=== PATIENT | female | born 1990 | race African-American/Black ===

== ENCOUNTER 2016-09-09 15:08 | Inpatient (IN) | payer MEDICARE, MEDICAID ==
[~2016-09-09] VITALS: Ht 175.3 cm; Wt 115.8 kg
[~2016-09-09 15:08] MED LIST: PALI234D IM; RISP2 PO; SERT50TA12 PO
[2016-09-09 16:14] VITALS: BP 139/86
[2016-09-09 16:30] VITALS: BP 137/96
[2016-09-09] MEDS ORDERED: -PHARMACY VACCINE NOTE- MISC ONE ×6 (19:30→20:45)
[2016-09-09] MEDS: RisperiDONE 2 MG TABLET PO SCH (20:58)
[2016-09-10 06:18] VITALS: BP 100/68
[2016-09-10 08:16] VITALS: BP 127/74
[2016-09-10 08:50] LABS: BASOPHILS % (AUTO) 0.4 % (0.0-2.0); EOSINOPHILS % (AUTO) 1.3 % (1.0-6.0); HEMATOCRIT 38.4 % (36-46); HEMOGLOBIN 12.8 g/dL (12.0-16.0); LYMPHOCYTES # (AUTO) 2.3 K/uL (1.0-4.8); LYMPHOCYTES % (AUTO) 36.2 % (22.0-44.0); MEAN CORPUSCULAR HEMOGLOBIN 28.1 pg (26.0-34.0); MEAN CORPUSCULAR HGB CONC 33.2 G/dL (31.0-37.0); MEAN CORPUSCULAR VOLUME 84 fL (80-100); MONOCYTES # (AUTO) 0.7 K/uL (0.1-1.0); MONOCYTES % (AUTO) 10.2 % (2.0-9.0); NEUTROPHILS # (AUTO) 3.3 K/uL (1.8-7.7); NEUTROPHILS % (AUTO) 51.9 % (40.0-70.0); PLATELET COUNT (AUTO) 278 K/uL (150-450); RED BLOOD CELL COUNT(AUTO) 4.55 MIL/uL (4.00-5.20); RED CELL DISTRIBUTION WIDTH 14.2 % (11.5-14.5); WHITE BLOOD COUNT (AUTO) 6.4 K/uL (4.5-11.0)
[2016-09-10] MEDS: RisperiDONE 2 MG TABLET PO SCH ×2 (09:00→21:14)
[2016-09-10 09:05] LABS: ALANINE AMINOTRANSFERASE 17 U/L (12-78); ALBUMIN 3.5 g/dL (3.4-5.0); ANION GAP 15 mmol/L (8-16); ASPARTATE AMINOTRANSFERASE 11 U/L (15-37); BILIRUBIN,TOTAL 0.6 mg/dL (0.1-1.0); CALCIUM, TOTAL 9.6 mg/dL (8.8-10.5); CARBON DIOXIDE 24 mmol/L (22-29); CHLORIDE 104 mmol/L (98-107); CREATININE 0.59 mg/dL (0.60-1.30); GLOMERULAR FILTR. RATE CALC > 60 mL/min (>60); POTASSIUM 3.7 mmol/L (3.5-5.1); SODIUM SERUM 143 mmol/L (136-145); TOTAL PROTEIN, SERUM 7.3 g/dL (6.4-8.2); UREA NITROGEN, BLOOD 7 mg/dL (7-18)
[2016-09-10] MEDS ORDERED: MAGNESIUM HYDROXIDE SUSPENSION 30 ML UDCUP PO PRN (09:15)
[2016-09-10] MEDS ORDERED: BACITRACIN 28.4 GM OINTMENT TP PRN (09:15)
[2016-09-10] MEDS ORDERED: PETROLATUM,WHITE 71 GM JELLY TP PRN (09:15)
[2016-09-10] MEDS ORDERED: CloNIDine HCL 0.1 MG TABLET PO PRN (09:15)
[2016-09-10] MEDS: LORazepam 2 MG TABLET PO PRN (09:29)
[2016-09-10] MEDS: SERTRALINE HCL 50 MG TABLET PO SCH (09:29)
[2016-09-10 16:18] VITALS: BP 119/63
[2016-09-11 07:05] VITALS: BP 118/68
[2016-09-11 08:33] LABS: APPEARANCE,URINE TURBID (CLEAR); GLUCOSE, URINE (UA) NEGATIVE (NEGATIVE); KETONES,URINE TRACE mg/dL (NEGATIVE); OCCULT BLOOD,URINE NEGATIVE (NEGATIVE); PROTEIN,URINE TRACE (NEGATIVE)
[2016-09-11] MEDS: SERTRALINE HCL 50 MG TABLET PO SCH (08:48)
[2016-09-11] MEDS: RisperiDONE 2 MG TABLET PO SCH ×2 (08:48→09:00)
[2016-09-11 09:14] LABS: ADD UA MICROSCOPIC YES; LEUKOCYTE ESTERASE ,URINE TRACE (NEGATIVE)
[2016-09-11 09:15] LABS: AMORPHOUS SEDIMENT,UR Many /LPF (None Seen); RBC,URINE None Seen /HPF (0-2); WBC,URINE 0-2 /HPF (0-5)
[2016-09-11] MEDS: LORazepam 2 MG TABLET PO PRN (09:20)
[2016-09-11] MEDS: CEPHALEXIN MONOHYDRATE 500 MG CAPSULE PO SCH ×2 (10:39→17:05)
[2016-09-11] MEDS: PHENAZOPYRIDINE HCL 100 MG TABLET PO SCH ×3 (10:39→17:04)
[2016-09-11 10:49] VITALS: BP 122/71
[2016-09-11 16:46] VITALS: BP 118/71
[2016-09-12 02:38] VITALS: BP 125/83
[2016-09-12 08:30] VITALS: BP 134/77
[2016-09-12] MEDS: SERTRALINE HCL 50 MG TABLET PO SCH (08:47)
[2016-09-12] MEDS: CEPHALEXIN MONOHYDRATE 500 MG CAPSULE PO SCH ×2 (08:47→16:41)
[2016-09-12] MEDS: PHENAZOPYRIDINE HCL 100 MG TABLET PO SCH ×3 (08:47→16:41)
[2016-09-12] MEDS: LORazepam 2 MG TABLET PO PRN (08:52)
[2016-09-12] MEDS: ONDANSETRON HCL 4 MG TABLET PO PRN (14:13)
[2016-09-12 16:19] VITALS: BP 127/68
[2016-09-13 00:15] VITALS: BP 112/60
[2016-09-13] MEDS: ZOLPIDEM TARTRATE 10 MG TABLET PO PRN (00:28)
[2016-09-13] MEDS: SERTRALINE HCL 50 MG TABLET PO SCH (08:43)
[2016-09-13] MEDS: CEPHALEXIN MONOHYDRATE 500 MG CAPSULE PO SCH ×2 (08:44→16:52)
[2016-09-13] MEDS: PHENAZOPYRIDINE HCL 100 MG TABLET PO SCH ×3 (08:44→16:52)
[2016-09-13 08:54] VITALS: BP 121/93
[2016-09-13 10:12] VITALS: BP 118/85
[2016-09-13 16:13] VITALS: BP 128/73
[2016-09-14 06:04] VITALS: BP 103/63
[2016-09-14 08:44] VITALS: BP 162/87
[2016-09-14] MEDS: PHENAZOPYRIDINE HCL 100 MG TABLET PO SCH (09:12)
[2016-09-14] MEDS: SERTRALINE HCL 50 MG TABLET PO SCH (09:12)
[2016-09-14] MEDS: CEPHALEXIN MONOHYDRATE 500 MG CAPSULE PO SCH ×2 (09:12→17:26)
[2016-09-14] MEDS: LORazepam 2 MG TABLET PO PRN (09:57)
[2016-09-14 16:19] VITALS: BP 123/82
[2016-09-15 08:42] VITALS: BP 159/99
[2016-09-15] MEDS: SERTRALINE HCL 50 MG TABLET PO SCH (08:58)
[2016-09-15] MEDS: CEPHALEXIN MONOHYDRATE 500 MG CAPSULE PO SCH ×2 (08:58→16:53)
[2016-09-15] MEDS: LORazepam 2 MG TABLET PO PRN (10:03)
[2016-09-15 12:40] VITALS: BP 122/74
[2016-09-15 16:05] VITALS: BP 104/64
[2016-09-16 00:15] VITALS: BP 106/76
[2016-09-16] MEDS: SERTRALINE HCL 50 MG TABLET PO SCH (08:54)
[2016-09-16] MEDS: CEPHALEXIN MONOHYDRATE 500 MG CAPSULE PO SCH (08:54)
[2016-09-16 09:12] VITALS: BP 121/66
[2016-09-16] MEDS: LORazepam 2 MG TABLET PO PRN (09:14)
[2016-09-16 16:14] VITALS: BP 109/75
[2016-09-17 01:44] VITALS: BP 106/67
[2016-09-17 08:30] VITALS: BP 125/75
[2016-09-17] MEDS: SERTRALINE HCL 50 MG TABLET PO SCH (09:36)
[2016-09-17 16:11] VITALS: BP 126/90
[2016-09-17 20:33] VITALS: BP 138/86
[2016-09-17] MEDS: IBUPROFEN 600 MG TABLET PO PRN (20:33)
[2016-09-18 06:27] VITALS: BP 106/67
[2016-09-18] MEDS: SERTRALINE HCL 50 MG TABLET PO SCH (08:35)
[2016-09-18] MEDS: LORazepam 2 MG TABLET PO PRN (08:49)
[2016-09-18 08:57] VITALS: BP 128/83
[2016-09-18 11:19] VITALS: BP 134/80
[2016-09-18] MEDS: IBUPROFEN 600 MG TABLET PO PRN (11:19)
[2016-09-18] MEDS: QUEtiapine FUMARATE 100 MG TABLET PO PRN (11:19)
[2016-09-18 16:09] VITALS: BP 120/60
[2016-09-19 02:14] VITALS: BP 136/93
[2016-09-19] MEDS: IBUPROFEN 600 MG TABLET PO PRN (02:26)
[2016-09-19 03:05] VITALS: BP 128/87
[2016-09-19] MEDS: LORazepam 2 MG TABLET PO PRN (03:43)
[2016-09-19 08:25] VITALS: BP 124/64
[2016-09-19] MEDS: SERTRALINE HCL 50 MG TABLET PO SCH (08:30)
[2016-09-19] MEDS: ONDANSETRON HCL 4 MG TABLET PO PRN (11:37)
[2016-09-19] MEDS: MAG HYDROX/AL HYDROX/SIMETH ES 30 ML SUSPENSION UDCUP PO PRN (17:51)
[2016-09-20 00:15] VITALS: BP 105/66
[2016-09-20] MEDS: SERTRALINE HCL 50 MG TABLET PO SCH (08:29)
[2016-09-20 08:56] VITALS: BP 126/86
[2016-09-20 16:16] VITALS: BP 121/68
[2016-09-21 00:20] VITALS: BP 120/77
[2016-09-21 08:21] VITALS: BP 125/88
[2016-09-21] MEDS: SERTRALINE HCL 50 MG TABLET PO SCH (09:14)
[2016-09-21 09:35] LABS: GLUCOSE, URINE (UA) NEGATIVE (NEGATIVE); KETONES,URINE NEGATIVE (NEGATIVE); LEUKOCYTE ESTERASE ,URINE NEGATIVE (NEGATIVE); OCCULT BLOOD,URINE NEGATIVE (NEGATIVE); PH,URINE 5.5 (5.0-8.0); PROTEIN,URINE NEGATIVE (NEGATIVE)
[2016-09-21 09:39] LABS: APPEARANCE,URINE CLEAR (CLEAR)
[2016-09-21 09:40] LABS: ADD UA MICROSCOPIC NO
[2016-09-21 16:10] VITALS: BP 138/86
[2016-09-22 00:10] VITALS: BP 115/60
[2016-09-22 08:08] VITALS: BP 126/82
[2016-09-22] MEDS: SERTRALINE HCL 50 MG TABLET PO SCH (08:46)
[2016-09-22 16:13] VITALS: BP 108/62
[2016-09-23 00:25] VITALS: BP 108/61
[2016-09-23 08:11] VITALS: BP 154/81
[2016-09-23] MEDS: LORazepam 2 MG TABLET PO PRN (08:42)
[2016-09-23] MEDS: SERTRALINE HCL 50 MG TABLET PO SCH (08:42)
[2016-09-23 16:12] VITALS: BP 126/86
[2016-09-24 04:10] VITALS: BP 101/62
[2016-09-24 08:34] VITALS: BP 104/64
[2016-09-24] MEDS: SERTRALINE HCL 50 MG TABLET PO SCH (09:07)
[2016-09-24] MEDS: LORazepam 2 MG TABLET PO PRN (13:14)
[2016-09-24] MEDS: BENZOCAINE/MENTHOL LOZENGE MM PRN (13:14)
[2016-09-24 16:12] VITALS: BP 126/84
[2016-09-25 00:57] VITALS: BP 115/65
[2016-09-25 05:08] VITALS: BP 132/82
[2016-09-25] MEDS: IBUPROFEN 600 MG TABLET PO PRN (05:11)
[2016-09-25] MEDS: LORazepam 2 MG TABLET PO PRN ×2 (05:11→18:00)
[2016-09-25 08:10] VITALS: BP 119/78
[2016-09-25] MEDS: ONDANSETRON HCL 4 MG TABLET PO PRN (08:21)
[2016-09-25] MEDS: SERTRALINE HCL 50 MG TABLET PO SCH (08:21)
[2016-09-25] MEDS: BENZOCAINE/MENTHOL LOZENGE MM PRN (11:23)
[2016-09-25] MEDS ORDERED: GuaiFENesin/D-METHORPHAN/PHENYLEPH 5 ML LIQUID ORAL.SYG PO PRN (11:30)
[2016-09-25 16:11] VITALS: BP 125/84
[2016-09-26 06:46] VITALS: BP 124/80
[2016-09-26 08:44] VITALS: BP 125/82
[2016-09-26] MEDS: SERTRALINE HCL 50 MG TABLET PO SCH (08:56)
[2016-09-26] MEDS: LORazepam 2 MG TABLET PO PRN (08:56)
[2016-09-26 16:10] VITALS: BP 114/70
[2016-09-27 06:09] VITALS: BP 126/73
[2016-09-27 06:10] VITALS: BP 120/76
[2016-09-27] MEDS: SERTRALINE HCL 50 MG TABLET PO SCH (08:10)
[2016-09-27] MEDS: LORazepam 2 MG TABLET PO PRN (08:47)
[2016-09-27 09:19] VITALS: BP 101/67
[2016-09-27 16:00] VITALS: BP 111/65
[2016-09-28 06:37] VITALS: BP 122/82
[2016-09-28 08:26] VITALS: BP 127/73
[2016-09-28] MEDS: SERTRALINE HCL 50 MG TABLET PO SCH (09:31)
[2016-09-28] MEDS: PALIPERIDONE PALMITATE 234 MG/1.5 ML SYRINGE IM SCH (10:17)
[2016-09-28] MEDS ORDERED: TUBERCULIN, PURIFIED PROTEIN DERIVATIVE 5 TU/0.1 ML SYG ID ONE (11:45)
[2016-09-28 16:24] VITALS: BP 126/80
[2016-09-29 06:48] VITALS: BP 125/78
[2016-09-29 08:10] VITALS: BP 139/82
[2016-09-29] MEDS: SERTRALINE HCL 50 MG TABLET PO SCH (09:01)
[2016-09-29] MEDS: LORazepam 2 MG TABLET PO PRN (09:45)
[2016-09-29 14:14] VITALS: BP 137/77
[2016-09-29 16:19] VITALS: BP 138/82
[2016-09-30 06:10] VITALS: BP 119/65
[2016-09-30 08:21] VITALS: BP 118/81
[2016-09-30] MEDS: SERTRALINE HCL 50 MG TABLET PO SCH (08:46)
[2016-09-30] MEDS: LORazepam 2 MG TABLET PO PRN (09:28)
[2016-09-30 09:30] VITALS: BP 116/71
[2016-09-30 16:10] VITALS: BP 123/75
[2016-10-01 00:40] VITALS: BP 105/67
[2016-10-01 08:31] VITALS: BP 128/71
[2016-10-01] MEDS: SERTRALINE HCL 50 MG TABLET PO SCH (08:52)
[2016-10-01] MEDS: LORazepam 2 MG TABLET PO PRN (14:50)
[2016-10-01 16:15] VITALS: BP 132/80
[2016-10-02 02:00] VITALS: BP 107/60
[2016-10-02] MEDS: SERTRALINE HCL 50 MG TABLET PO SCH (08:39)
[2016-10-02 08:49] VITALS: BP 134/82
[2016-10-02 13:37] VITALS: BP 130/80
[2016-10-02] MEDS: LOPERAMIDE HCL 2 MG CAPSULE PO PRN (13:37)
[2016-10-02] MEDS: IBUPROFEN 600 MG TABLET PO PRN (13:37)
[2016-10-02 18:27] VITALS: BP 115/64
[2016-10-02] MEDS: ZOLPIDEM TARTRATE 10 MG TABLET PO PRN (20:58)
[2016-10-03 04:29] VITALS: BP 118/65
[2016-10-03] MEDS: SERTRALINE HCL 50 MG TABLET PO SCH (08:10)
[2016-10-03 08:46] VITALS: BP 111/88
[2016-10-03 16:12] VITALS: BP 128/86
[2016-10-04 00:34] VITALS: BP 122/65
[2016-10-04 08:33] VITALS: BP 135/71
[2016-10-04] MEDS: SERTRALINE HCL 50 MG TABLET PO SCH (09:44)
[2016-10-04 16:17] VITALS: BP 129/78
[2016-10-05 00:44] VITALS: BP 115/70
[2016-10-05 08:10] VITALS: BP 129/73
[2016-10-05] MEDS: SERTRALINE HCL 50 MG TABLET PO SCH (08:38)
[2016-10-05 16:00] VITALS: BP 134/72
[2016-10-06 01:06] VITALS: BP 122/73
[2016-10-06 08:38] VITALS: BP 129/71
[2016-10-06] MEDS: SERTRALINE HCL 50 MG TABLET PO SCH (08:54)
[2016-10-06] MEDS: LORazepam 2 MG TABLET PO PRN (12:47)
[2016-10-06 16:10] VITALS: BP 121/83
[2016-10-07 00:40] VITALS: BP 107/66
[2016-10-07 07:30] VITALS: BP 116/68
[2016-10-07 08:00] VITALS: BP 116/68
[2016-10-07] MEDS: SERTRALINE HCL 50 MG TABLET PO SCH (09:06)
[2016-10-07 16:06] VITALS: BP 133/84
[2016-10-08 05:47] VITALS: BP 126/75
[2016-10-08 08:50] VITALS: BP 134/83
[2016-10-08] MEDS: SERTRALINE HCL 50 MG TABLET PO SCH (09:27)
[2016-10-08 16:09] VITALS: BP 131/79
[2016-10-09 02:26] VITALS: BP 124/68
[2016-10-09 08:23] VITALS: BP 136/98
[2016-10-09] MEDS: SERTRALINE HCL 50 MG TABLET PO SCH (09:01)
[2016-10-09 16:30] VITALS: BP 132/91
[2016-10-10 00:10] VITALS: BP 111/82
[2016-10-10 08:10] VITALS: BP 137/78
[2016-10-10] MEDS: SERTRALINE HCL 50 MG TABLET PO SCH (08:30)
[2016-10-10 16:07] VITALS: BP 115/69
[2016-10-11 00:01] VITALS: BP 103/63
[2016-10-11 08:10] VITALS: BP 149/95
[2016-10-11] MEDS: SERTRALINE HCL 50 MG TABLET PO SCH (08:55)
[2016-10-11 12:55] VITALS: BP 140/88
[2016-10-11 16:19] VITALS: BP 135/78
[2016-10-12 00:44] VITALS: BP 117/76
[2016-10-12] MEDS: SERTRALINE HCL 50 MG TABLET PO SCH (08:24)
[2016-10-12 08:42] VITALS: BP 129/70
[2016-10-12 16:03] VITALS: BP 139/82
[2016-10-13 00:17] VITALS: BP 119/68
[2016-10-13 08:18] VITALS: BP 104/65
[2016-10-13] MEDS: SERTRALINE HCL 50 MG TABLET PO SCH (09:36)
[2016-10-13 16:07] VITALS: BP 132/75
[2016-10-14 02:56] VITALS: BP 112/71
[2016-10-14 08:07] VITALS: BP 122/94
[2016-10-14] MEDS: SERTRALINE HCL 50 MG TABLET PO SCH (08:20)
[2016-10-14] MEDS: LORazepam 2 MG TABLET PO PRN (08:20)
[2016-10-14 16:17] VITALS: BP 114/69
[2016-10-15 05:05] VITALS: BP 100/64
[2016-10-15 08:12] VITALS: BP 157/89
[2016-10-15] MEDS: SERTRALINE HCL 50 MG TABLET PO SCH (08:48)
[2016-10-15] MEDS: LORazepam 2 MG TABLET PO PRN (09:21)
[2016-10-15 10:25] VITALS: BP 127/77
[2016-10-15 16:21] VITALS: BP 113/72
[2016-10-15 19:15] VITALS: BP 119/79
[2016-10-15] MEDS: ACETAMINOPHEN 325 MG TABLET PO PRN (19:23)
[2016-10-16 05:59] VITALS: BP 104/60
[2016-10-16 08:34] VITALS: BP 124/91
[2016-10-16] MEDS: SERTRALINE HCL 50 MG TABLET PO SCH (08:46)
[2016-10-16] MEDS: ONDANSETRON HCL 4 MG TABLET PO PRN (13:06)
[2016-10-16 16:27] VITALS: BP 129/84
[2016-10-17 00:24] VITALS: BP 107/69
[2016-10-17 08:00] VITALS: BP 152/95
[2016-10-17] MEDS: SERTRALINE HCL 50 MG TABLET PO SCH (08:43)
[2016-10-17] MEDS: LORazepam 2 MG TABLET PO PRN (08:46)
[2016-10-17 10:02] VITALS: BP 138/73
[2016-10-17 16:12] VITALS: BP 112/67
[2016-10-18 03:25] VITALS: BP 127/81
[2016-10-18] MEDS: SERTRALINE HCL 50 MG TABLET PO SCH (08:16)
[2016-10-18] MEDS: ONDANSETRON HCL 4 MG TABLET PO PRN (08:20)
[2016-10-18 08:44] VITALS: BP 133/68
[2016-10-18 16:15] VITALS: BP 132/85
[2016-10-19 00:22] VITALS: BP 112/61
[2016-10-19 08:32] VITALS: BP 127/72
[2016-10-19] MEDS: SERTRALINE HCL 50 MG TABLET PO SCH (09:18)
[2016-10-19 16:14] VITALS: BP 119/74
[2016-10-20 00:28] VITALS: BP 126/65
[2016-10-20 08:19] VITALS: BP 132/83
[2016-10-20] MEDS: SERTRALINE HCL 50 MG TABLET PO SCH (08:21)
[2016-10-20] MEDS ORDERED: TUBERCULIN, PURIFIED PROTEIN DERIVATIVE 5 TU/0.1 ML SYG ID ONE (15:15)
[2016-10-20 16:07] VITALS: BP 137/85
[2016-10-21 00:01] VITALS: BP 129/82
[2016-10-21] MEDS: ZOLPIDEM TARTRATE 10 MG TABLET PO PRN (00:09)
[2016-10-21] MEDS: SERTRALINE HCL 50 MG TABLET PO SCH (08:38)
[2016-10-21 08:55] VITALS: BP 128/80
[2016-10-21 16:05] VITALS: BP 117/71
[2016-10-22 01:30] VITALS: BP 115/70
[2016-10-22 08:25] VITALS: BP 118/68
[2016-10-22] MEDS: SERTRALINE HCL 50 MG TABLET PO SCH ×2 (09:00→09:22)
[2016-10-23 00:01] VITALS: BP 113/68
[2016-10-23] MEDS: SERTRALINE HCL 50 MG TABLET PO SCH (08:46)
[2016-10-23 09:25] VITALS: BP 121/74
[2016-10-23 16:10] VITALS: BP 138/83
[2016-10-24 07:13] VITALS: BP 135/77
[2016-10-24 09:21] VITALS: BP 148/78
[2016-10-24] MEDS: SERTRALINE HCL 50 MG TABLET PO SCH (09:58)
[2016-10-24] MEDS: LORazepam 2 MG TABLET PO PRN (10:25)
[2016-10-24 16:11] VITALS: BP 117/71
[2016-10-25 00:37] VITALS: BP 116/74
[2016-10-25 08:27] VITALS: BP 138/83
[2016-10-25] MEDS: SERTRALINE HCL 50 MG TABLET PO SCH (08:32)
[2016-10-25] MEDS: ONDANSETRON HCL 4 MG TABLET PO PRN (08:35)
[2016-10-25 16:43] VITALS: BP 134/67
[2016-10-26 02:03] VITALS: BP 116/74
[2016-10-26] MEDS: LORazepam 2 MG TABLET PO PRN ×2 (04:42→08:59)
[2016-10-26 08:40] VITALS: BP 133/82
[2016-10-26] MEDS: SERTRALINE HCL 50 MG TABLET PO SCH (08:47)
[2016-10-26 14:30] VITALS: BP 118/71
[2016-10-26] MEDS: PALIPERIDONE PALMITATE 234 MG/1.5 ML SYRINGE IM SCH (14:38)
[2016-10-26 16:21] VITALS: BP 122/78
[2016-10-27 07:19] VITALS: BP 120/76
[2016-10-27 08:57] VITALS: BP 128/80
[2016-10-27] MEDS: SERTRALINE HCL 50 MG TABLET PO SCH (10:03)
[2016-10-27] MEDS: LORazepam 2 MG TABLET PO PRN (11:17)
[2016-10-27] MEDS: QUEtiapine FUMARATE 100 MG TABLET PO PRN (11:17)
[2016-10-27 16:00] VITALS: BP 117/73
[2016-10-28 07:34] VITALS: BP 135/76
[2016-10-28] MEDS: SERTRALINE HCL 50 MG TABLET PO SCH (08:54)
[2016-10-28 16:08] VITALS: BP 119/77
[2016-10-29 01:29] VITALS: BP 124/79
[2016-10-29 08:50] VITALS: BP 107/70
[2016-10-29] MEDS: SERTRALINE HCL 50 MG TABLET PO SCH (09:18)
[2016-10-29 16:10] VITALS: BP 118/75
[2016-10-30 00:51] VITALS: BP 101/63
[2016-10-30] MEDS: SERTRALINE HCL 50 MG TABLET PO SCH (09:25)
[2016-10-30 16:00] VITALS: BP 129/77
[2016-10-31 00:53] VITALS: BP 115/74
[2016-10-31] MEDS: SERTRALINE HCL 50 MG TABLET PO SCH (08:14)
[2016-10-31 08:38] VITALS: BP 129/85
[2016-10-31] MEDS: LORazepam 2 MG TABLET PO PRN (14:36)
[2016-10-31 16:00] VITALS: BP 130/80
[2016-11-01 05:28] VITALS: BP 127/71
[2016-11-01 08:15] VITALS: BP 128/71
[2016-11-01] MEDS: SERTRALINE HCL 50 MG TABLET PO SCH (09:34)
[2016-11-01 16:27] VITALS: BP 119/72
[2016-11-02 00:16] VITALS: BP 106/61
[2016-11-02 08:00] VITALS: BP 124/68
[2016-11-02] MEDS: SERTRALINE HCL 50 MG TABLET PO SCH (08:41)
[2016-11-02] MEDS: IBUPROFEN 600 MG TABLET PO PRN (10:58)
[2016-11-02 16:16] VITALS: BP 135/90
[2016-11-03 00:12] VITALS: BP 134/70
[2016-11-03 08:36] VITALS: BP 129/83
[2016-11-03] MEDS: SERTRALINE HCL 50 MG TABLET PO SCH (10:14)
[2016-11-03] MEDS: ONDANSETRON HCL 4 MG TABLET PO PRN (10:14)
[2016-11-03 16:18] VITALS: BP 136/86
[2016-11-04 06:07] VITALS: BP 111/67
[2016-11-04] MEDS: SERTRALINE HCL 50 MG TABLET PO SCH (09:31)
[2016-11-04 16:19] VITALS: BP 121/66
[2016-11-04] MEDS: IBUPROFEN 600 MG TABLET PO PRN (23:02)
[2016-11-05 06:22] VITALS: BP 122/75
[2016-11-05 08:36] VITALS: BP 136/78
[2016-11-05] MEDS: SERTRALINE HCL 50 MG TABLET PO SCH (09:17)
[2016-11-05 16:15] VITALS: BP 121/70
[2016-11-06 07:22] VITALS: BP 118/75
[2016-11-06] MEDS: SERTRALINE HCL 50 MG TABLET PO SCH (08:41)
[2016-11-06 09:06] VITALS: BP 118/61
[2016-11-06] MEDS: LORazepam 2 MG TABLET PO PRN (10:01)
[2016-11-06] MEDS: IBUPROFEN 600 MG TABLET PO PRN (10:02)
[2016-11-06 16:00] VITALS: BP 128/89
[2016-11-07 07:03] VITALS: BP 132/81
[2016-11-07 08:00] VITALS: BP 137/64
[2016-11-07] MEDS: SERTRALINE HCL 50 MG TABLET PO SCH (08:21)
[2016-11-07] MEDS: LORazepam 2 MG TABLET PO PRN (08:22)
[2016-11-07] MEDS ORDERED: TraMADol HCL 50 MG TABLET PO PRN (08:30)
[2016-11-07] MEDS: MULTIVITAMINS WITH MINERALS, THERAPEUTIC TABLET PO SCH (09:11)
[2016-11-07] MEDS: FLUTICASONE/VILANTEROL 200-25 MCG/INH INHALER [14] IH SCH (09:12)
[2016-11-07 16:36] VITALS: BP 117/77
[2016-11-08 00:46] VITALS: BP 108/65
[2016-11-08] MEDS: SERTRALINE HCL 50 MG TABLET PO SCH (08:07)
[2016-11-08] MEDS: FLUTICASONE/VILANTEROL 200-25 MCG/INH INHALER [14] IH SCH (08:07)
[2016-11-08] MEDS: MULTIVITAMINS WITH MINERALS, THERAPEUTIC TABLET PO SCH (08:07)
[2016-11-08 08:14] VITALS: BP 129/83
[2016-11-08 16:34] VITALS: BP 116/81
[2016-11-09 02:19] VITALS: BP 107/68
[2016-11-09] MEDS: MULTIVITAMINS WITH MINERALS, THERAPEUTIC TABLET PO SCH (08:03)
[2016-11-09] MEDS: FLUTICASONE/VILANTEROL 200-25 MCG/INH INHALER [14] IH SCH (08:03)
[2016-11-09] MEDS: SERTRALINE HCL 50 MG TABLET PO SCH (08:03)
[2016-11-09 08:34] VITALS: BP 124/77
[2016-11-09 16:08] VITALS: BP 114/76
[2016-11-10 06:47] VITALS: BP 104/70
[2016-11-10 08:05] VITALS: BP 111/68
[2016-11-10] MEDS: MULTIVITAMINS WITH MINERALS, THERAPEUTIC TABLET PO SCH (10:37)
[2016-11-10] MEDS: SERTRALINE HCL 50 MG TABLET PO SCH (10:37)
[2016-11-10] MEDS: FLUTICASONE/VILANTEROL 200-25 MCG/INH INHALER [14] IH SCH (10:37)
[2016-11-10 16:05] VITALS: BP 127/75
[2016-11-11 00:07] VITALS: BP 138/85
[2016-11-11] MEDS: LORazepam 2 MG TABLET PO PRN (08:38)
[2016-11-11] MEDS: SERTRALINE HCL 50 MG TABLET PO SCH (08:38)
[2016-11-11] MEDS: FLUTICASONE/VILANTEROL 200-25 MCG/INH INHALER [14] IH SCH (08:38)
[2016-11-11] MEDS: MULTIVITAMINS WITH MINERALS, THERAPEUTIC TABLET PO SCH (08:38)
[2016-11-11 09:15] VITALS: BP 129/74
[2016-11-11 16:10] VITALS: BP 126/79
[2016-11-12 01:00] VITALS: BP 124/73
[2016-11-12 08:28] VITALS: BP 133/88
[2016-11-12] MEDS: SERTRALINE HCL 50 MG TABLET PO SCH (08:39)
[2016-11-12] MEDS: MULTIVITAMINS WITH MINERALS, THERAPEUTIC TABLET PO SCH (08:39)
[2016-11-12] MEDS: FLUTICASONE/VILANTEROL 200-25 MCG/INH INHALER [14] IH SCH (08:39)
[2016-11-12] MEDS: LORazepam 2 MG TABLET PO PRN (09:02)
[2016-11-12 16:11] VITALS: BP 126/72
[2016-11-13 00:19] VITALS: BP 119/71
[2016-11-13 08:57] VITALS: BP 136/88
[2016-11-13] MEDS: SERTRALINE HCL 50 MG TABLET PO SCH (09:02)
[2016-11-13] MEDS: MULTIVITAMINS WITH MINERALS, THERAPEUTIC TABLET PO SCH (09:02)
[2016-11-13] MEDS: FLUTICASONE/VILANTEROL 200-25 MCG/INH INHALER [14] IH SCH (09:02)
[2016-11-13 16:11] VITALS: BP 127/92
[2016-11-14 04:56] VITALS: BP 124/72
[2016-11-14 08:07] VITALS: BP 105/59
[2016-11-14] MEDS: MULTIVITAMINS WITH MINERALS, THERAPEUTIC TABLET PO SCH (08:50)
[2016-11-14] MEDS: SERTRALINE HCL 50 MG TABLET PO SCH (08:50)
[2016-11-14] MEDS: FLUTICASONE/VILANTEROL 200-25 MCG/INH INHALER [14] IH SCH (08:51)
[2016-11-14] MEDS: LORazepam 2 MG TABLET PO PRN (08:55)
[2016-11-14 16:00] VITALS: BP 130/74
[2016-11-15 04:22] VITALS: BP_SYST 126
[2016-11-15 08:06] VITALS: BP 127/76
[2016-11-15] MEDS: MULTIVITAMINS WITH MINERALS, THERAPEUTIC TABLET PO SCH (08:57)
[2016-11-15] MEDS: SERTRALINE HCL 50 MG TABLET PO SCH (08:57)
[2016-11-15] MEDS: FLUTICASONE/VILANTEROL 200-25 MCG/INH INHALER [14] IH SCH (08:58)
[2016-11-15 16:07] VITALS: BP 136/78
[2016-11-16 06:54] VITALS: BP 123/72
[2016-11-16] MEDS: MULTIVITAMINS WITH MINERALS, THERAPEUTIC TABLET PO SCH (08:37)
[2016-11-16] MEDS: SERTRALINE HCL 100 MG TABLET PO SCH (08:37)
[2016-11-16] MEDS: FLUTICASONE/VILANTEROL 200-25 MCG/INH INHALER [14] IH SCH (08:38)
[2016-11-16 08:42] VITALS: BP 133/70
[2016-11-16 16:14] VITALS: BP 116/68
[2016-11-17 00:45] VITALS: BP 128/73
[2016-11-17] MEDS: SERTRALINE HCL 100 MG TABLET PO SCH (08:37)
[2016-11-17] MEDS: MULTIVITAMINS WITH MINERALS, THERAPEUTIC TABLET PO SCH (08:37)
[2016-11-17] MEDS: FLUTICASONE/VILANTEROL 200-25 MCG/INH INHALER [14] IH SCH (08:38)
[2016-11-17 16:42] VITALS: BP 117/83
[2016-11-18 00:06] VITALS: BP 117/70
[2016-11-18] MEDS: MULTIVITAMINS WITH MINERALS, THERAPEUTIC TABLET PO SCH (10:11)
[2016-11-18] MEDS: SERTRALINE HCL 100 MG TABLET PO SCH (10:11)
[2016-11-18] MEDS: FLUTICASONE/VILANTEROL 200-25 MCG/INH INHALER [14] IH SCH (10:14)
[2016-11-18 16:21] VITALS: BP 137/86
[2016-11-19 07:10] VITALS: BP 108/75
[2016-11-19 08:16] VITALS: BP 137/85
[2016-11-19] MEDS: MULTIVITAMINS WITH MINERALS, THERAPEUTIC TABLET PO SCH (09:43)
[2016-11-19] MEDS: SERTRALINE HCL 100 MG TABLET PO SCH (09:44)
[2016-11-19] MEDS: FLUTICASONE/VILANTEROL 200-25 MCG/INH INHALER [14] IH SCH (09:44)
[2016-11-19 16:15] VITALS: BP 121/79
[2016-11-20 06:09] VITALS: BP 111/74
[2016-11-20 08:45] VITALS: BP 135/71
[2016-11-20] MEDS: FLUTICASONE/VILANTEROL 200-25 MCG/INH INHALER [14] IH SCH (09:06)
[2016-11-20] MEDS: MULTIVITAMINS WITH MINERALS, THERAPEUTIC TABLET PO SCH (09:06)
[2016-11-20] MEDS: SERTRALINE HCL 100 MG TABLET PO SCH (09:06)
[2016-11-20 16:11] VITALS: BP 117/75
[2016-11-21 00:16] VITALS: BP 129/74
[2016-11-21 08:05] VITALS: BP 132/83
[2016-11-21] MEDS: SERTRALINE HCL 100 MG TABLET PO SCH (08:21)
[2016-11-21] MEDS: MULTIVITAMINS WITH MINERALS, THERAPEUTIC TABLET PO SCH (08:21)
[2016-11-21] MEDS: FLUTICASONE/VILANTEROL 200-25 MCG/INH INHALER [14] IH SCH (08:21)
[2016-11-21 16:00] VITALS: BP 116/83
[2016-11-22 06:29] VITALS: BP 126/68
[2016-11-22] MEDS: SERTRALINE HCL 100 MG TABLET PO SCH (08:17)
[2016-11-22] MEDS: MULTIVITAMINS WITH MINERALS, THERAPEUTIC TABLET PO SCH (08:17)
[2016-11-22] MEDS: FLUTICASONE/VILANTEROL 200-25 MCG/INH INHALER [14] IH SCH (08:18)
[2016-11-22 08:35] VITALS: BP 133/82
[2016-11-22 16:07] VITALS: BP 133/85
[2016-11-23 02:27] VITALS: BP 100/64
[2016-11-23] MEDS: PALIPERIDONE PALMITATE 234 MG/1.5 ML SYRINGE IM SCH (08:06)
[2016-11-23] MEDS: FLUTICASONE/VILANTEROL 200-25 MCG/INH INHALER [14] IH SCH (08:06)
[2016-11-23] MEDS: MULTIVITAMINS WITH MINERALS, THERAPEUTIC TABLET PO SCH (08:06)
[2016-11-23] MEDS: SERTRALINE HCL 100 MG TABLET PO SCH (08:07)
[2016-11-23 08:24] VITALS: BP 140/91
[2016-11-23 10:29] VITALS: BP 130/81
[2016-11-23] MEDS: MAG HYDROX/AL HYDROX/SIMETH ES 30 ML SUSPENSION UDCUP PO PRN (12:50)
[2016-11-23] MEDS: ONDANSETRON HCL 4 MG TABLET PO PRN (15:35)
[2016-11-23 16:06] VITALS: BP 135/84
[2016-11-24 00:11] VITALS: BP 125/78
[2016-11-24] MEDS: MULTIVITAMINS WITH MINERALS, THERAPEUTIC TABLET PO SCH (08:30)
[2016-11-24] MEDS: SERTRALINE HCL 100 MG TABLET PO SCH (08:30)
[2016-11-24] MEDS: FLUTICASONE/VILANTEROL 200-25 MCG/INH INHALER [14] IH SCH (08:30)
[2016-11-24 08:41] VITALS: BP 125/75
[2016-11-24 16:04] VITALS: BP 123/76
[2016-11-25 00:37] VITALS: BP 129/73
[2016-11-25 08:03] VITALS: BP 141/79
[2016-11-25] MEDS: SERTRALINE HCL 100 MG TABLET PO SCH (08:16)
[2016-11-25] MEDS: MULTIVITAMINS WITH MINERALS, THERAPEUTIC TABLET PO SCH (08:16)
[2016-11-25] MEDS: FLUTICASONE/VILANTEROL 200-25 MCG/INH INHALER [14] IH SCH (08:17)
[2016-11-25] MEDS: LORazepam 2 MG TABLET PO PRN (08:33)
[2016-11-25 16:11] VITALS: BP 118/67
[2016-11-26 06:00] VITALS: BP 117/69
[2016-11-26 08:08] VITALS: BP 114/67
[2016-11-26] MEDS: SERTRALINE HCL 100 MG TABLET PO SCH (08:31)
[2016-11-26] MEDS: MULTIVITAMINS WITH MINERALS, THERAPEUTIC TABLET PO SCH (08:31)
[2016-11-26] MEDS: LORazepam 2 MG TABLET PO PRN (08:31)
[2016-11-26] MEDS: FLUTICASONE/VILANTEROL 200-25 MCG/INH INHALER [14] IH SCH (08:32)
[2016-11-26 16:15] VITALS: BP 104/64
[2016-11-27 01:50] VITALS: BP 137/63
[2016-11-27 08:02] VITALS: BP 128/66
[2016-11-27] MEDS: MULTIVITAMINS WITH MINERALS, THERAPEUTIC TABLET PO SCH (08:31)
[2016-11-27] MEDS: SERTRALINE HCL 100 MG TABLET PO SCH (08:31)
[2016-11-27] MEDS: FLUTICASONE/VILANTEROL 200-25 MCG/INH INHALER [14] IH SCH (08:32)
[2016-11-27] MEDS: LORazepam 2 MG TABLET PO PRN (08:43)
[2016-11-27 16:15] VITALS: BP 123/77
[2016-11-28 01:17] VITALS: BP 109/71
[2016-11-28 08:00] VITALS: BP 108/67
[2016-11-28] MEDS: SERTRALINE HCL 100 MG TABLET PO SCH (08:31)
[2016-11-28] MEDS: MULTIVITAMINS WITH MINERALS, THERAPEUTIC TABLET PO SCH (08:31)
[2016-11-28] MEDS: FLUTICASONE/VILANTEROL 200-25 MCG/INH INHALER [14] IH SCH (08:31)
[2016-11-28 16:03] VITALS: BP 123/84
[2016-11-29 00:10] VITALS: BP 120/70
[2016-11-29 08:05] VITALS: BP 116/68
[2016-11-29] MEDS: SERTRALINE HCL 100 MG TABLET PO SCH (08:15)
[2016-11-29] MEDS: MULTIVITAMINS WITH MINERALS, THERAPEUTIC TABLET PO SCH (08:15)
[2016-11-29] MEDS: FLUTICASONE/VILANTEROL 200-25 MCG/INH INHALER [14] IH SCH (08:15)
[2016-11-29 16:05] VITALS: BP 114/75
[2016-11-30 06:31] VITALS: BP 108/73
[2016-11-30 08:01] VITALS: BP 111/60
[2016-11-30] MEDS: SERTRALINE HCL 100 MG TABLET PO SCH (08:08)
[2016-11-30] MEDS: MULTIVITAMINS WITH MINERALS, THERAPEUTIC TABLET PO SCH (08:08)
[2016-11-30] MEDS: FLUTICASONE/VILANTEROL 200-25 MCG/INH INHALER [14] IH SCH (08:08)
[2016-11-30 16:08] VITALS: BP 127/75
[2016-12-01 00:10] VITALS: BP 119/72
[2016-12-01] MEDS: MULTIVITAMINS WITH MINERALS, THERAPEUTIC TABLET PO SCH (11:36)
[2016-12-01] MEDS: SERTRALINE HCL 100 MG TABLET PO SCH (11:36)
[2016-12-01] MEDS: FLUTICASONE/VILANTEROL 200-25 MCG/INH INHALER [14] IH SCH (11:37)
[2016-12-01 12:12] VITALS: BP 133/75
[2016-12-01 16:04] VITALS: BP 126/84
[2016-12-02 01:53] VITALS: BP 120/69
[2016-12-02] MEDS: FLUTICASONE/VILANTEROL 200-25 MCG/INH INHALER [14] IH SCH (08:16)
[2016-12-02] MEDS: SERTRALINE HCL 100 MG TABLET PO SCH (08:16)
[2016-12-02] MEDS: MULTIVITAMINS WITH MINERALS, THERAPEUTIC TABLET PO SCH (08:16)
[2016-12-02 08:35] VITALS: BP 149/97
[2016-12-02 16:04] VITALS: BP 125/70
[2016-12-03 06:12] VITALS: BP 125/76
[2016-12-03] MEDS: FLUTICASONE/VILANTEROL 200-25 MCG/INH INHALER [14] IH SCH (08:42)
[2016-12-03] MEDS: SERTRALINE HCL 100 MG TABLET PO SCH (08:42)
[2016-12-03] MEDS: MULTIVITAMINS WITH MINERALS, THERAPEUTIC TABLET PO SCH (08:42)
[2016-12-03 09:39] VITALS: BP 134/74
[2016-12-03 16:03] VITALS: BP 130/84
[2016-12-04 05:55] VITALS: BP 116/65
[2016-12-04 08:20] VITALS: BP 120/63
[2016-12-04] MEDS: FLUTICASONE/VILANTEROL 200-25 MCG/INH INHALER [14] IH SCH (08:32)
[2016-12-04] MEDS: MULTIVITAMINS WITH MINERALS, THERAPEUTIC TABLET PO SCH (08:32)
[2016-12-04] MEDS: SERTRALINE HCL 100 MG TABLET PO SCH (08:32)
[2016-12-04 16:05] VITALS: BP 136/82
[2016-12-05 00:53] VITALS: BP 120/64
[2016-12-05 08:21] VITALS: BP 118/76
[2016-12-05] MEDS: SERTRALINE HCL 100 MG TABLET PO SCH (08:32)
[2016-12-05] MEDS: FLUTICASONE/VILANTEROL 200-25 MCG/INH INHALER [14] IH SCH (08:32)
[2016-12-05] MEDS: MULTIVITAMINS WITH MINERALS, THERAPEUTIC TABLET PO SCH (08:32)
[2016-12-05 16:14] VITALS: BP 112/83
[2016-12-06 01:07] VITALS: BP 129/61
[2016-12-06 08:05] LABS: BASOPHILS % (AUTO) 0.2 % (0.0-2.0); EOSINOPHILS % (AUTO) 1.4 % (1.0-6.0); HEMATOCRIT 43.3 % (36-46); LYMPHOCYTES # (AUTO) 2.3 K/uL (1.0-4.8); LYMPHOCYTES % (AUTO) 29.5 % (22.0-44.0); MEAN CORPUSCULAR HEMOGLOBIN 28.1 pg (26.0-34.0); MEAN CORPUSCULAR HGB CONC 32.3 G/dL (31.0-37.0); MEAN CORPUSCULAR VOLUME 87 fL (80-100); MONOCYTES # (AUTO) 1.3 K/uL (0.1-1.0); MONOCYTES % (AUTO) 15.9 % (2.0-9.0); NEUTROPHILS # (AUTO) 4.2 K/uL (1.8-7.7); PLATELET COUNT (AUTO) 243 K/uL (150-450); RED BLOOD CELL COUNT(AUTO) 4.98 MIL/uL (4.00-5.20); RED CELL DISTRIBUTION WIDTH 13.6 % (11.5-14.5); WHITE BLOOD COUNT (AUTO) 7.9 K/uL (4.5-11.0)
[2016-12-06] MEDS: FLUTICASONE/VILANTEROL 200-25 MCG/INH INHALER [14] IH SCH (08:17)
[2016-12-06] MEDS: MULTIVITAMINS WITH MINERALS, THERAPEUTIC TABLET PO SCH (08:17)
[2016-12-06] MEDS: SERTRALINE HCL 100 MG TABLET PO SCH (08:17)
[2016-12-06 08:38] VITALS: BP 129/61
[2016-12-06 09:03] LABS: ALANINE AMINOTRANSFERASE 15 U/L (12-78); ALBUMIN 3.8 g/dL (3.4-5.0); ANION GAP 12 mmol/L (8-16); ASPARTATE AMINOTRANSFERASE 21 U/L (15-37); BILIRUBIN,TOTAL 0.3 mg/dL (0.1-1.0); CALCIUM, TOTAL 9.6 mg/dL (8.8-10.5); CARBON DIOXIDE 25 mmol/L (22-29); CHLORIDE 103 mmol/L (98-107); CREATININE 0.62 mg/dL (0.60-1.30); GLOMERULAR FILTR. RATE CALC > 60 mL/min (>60); POTASSIUM 3.9 mmol/L (3.5-5.1); SODIUM SERUM 140 mmol/L (136-145); UREA NITROGEN, BLOOD 12 mg/dL (7-18)
[2016-12-06 16:34] VITALS: BP 140/80
[2016-12-07 00:58] VITALS: BP 128/75
[2016-12-07 08:09] VITALS: BP 145/105
[2016-12-07] MEDS: FLUTICASONE/VILANTEROL 200-25 MCG/INH INHALER [14] IH SCH (08:35)
[2016-12-07] MEDS: SERTRALINE HCL 100 MG TABLET PO SCH (08:36)
[2016-12-07] MEDS: MULTIVITAMINS WITH MINERALS, THERAPEUTIC TABLET PO SCH (08:36)
[2016-12-07 12:16] VITALS: BP 132/78
[2016-12-07 16:01] VITALS: BP 138/85
[2016-12-08 06:31] VITALS: BP 139/94
[2016-12-08 08:28] VITALS: BP 121/70
[2016-12-08] MEDS: SERTRALINE HCL 100 MG TABLET PO SCH (08:35)
[2016-12-08] MEDS: FLUTICASONE/VILANTEROL 200-25 MCG/INH INHALER [14] IH SCH (08:36)
[2016-12-08] MEDS: MULTIVITAMINS WITH MINERALS, THERAPEUTIC TABLET PO SCH (08:36)
[2016-12-08 16:05] VITALS: BP 132/80
[2016-12-09 02:58] VITALS: BP 100/61
[2016-12-09 08:21] VITALS: BP 112/68
[2016-12-09] MEDS: MULTIVITAMINS WITH MINERALS, THERAPEUTIC TABLET PO SCH (08:57)
[2016-12-09] MEDS: SERTRALINE HCL 100 MG TABLET PO SCH (08:57)
[2016-12-09] MEDS: FLUTICASONE/VILANTEROL 200-25 MCG/INH INHALER [14] IH SCH (08:57)
[2016-12-09 16:04] VITALS: BP 113/65
[2016-12-10 03:06] VITALS: BP 112/62
[2016-12-10 08:04] VITALS: BP 121/76
[2016-12-10] MEDS: MULTIVITAMINS WITH MINERALS, THERAPEUTIC TABLET PO SCH (08:45)
[2016-12-10] MEDS: SERTRALINE HCL 100 MG TABLET PO SCH (08:45)
[2016-12-10] MEDS: FLUTICASONE/VILANTEROL 200-25 MCG/INH INHALER [14] IH SCH (08:46)
[2016-12-10 16:03] VITALS: BP 118/72
[2016-12-10] MEDS: QUEtiapine FUMARATE 100 MG TABLET PO PRN (19:33)
[2016-12-11 06:20] VITALS: BP 114/76
[2016-12-11] MEDS: FLUTICASONE/VILANTEROL 200-25 MCG/INH INHALER [14] IH SCH (08:39)
[2016-12-11] MEDS: SERTRALINE HCL 100 MG TABLET PO SCH (08:39)
[2016-12-11] MEDS: MULTIVITAMINS WITH MINERALS, THERAPEUTIC TABLET PO SCH (08:40)
[2016-12-11 09:35] VITALS: BP 122/80
[2016-12-11 16:17] VITALS: BP 140/96
[2016-12-12 01:12] VITALS: BP 129/86
[2016-12-12 08:03] VITALS: BP 148/70
[2016-12-12] MEDS: FLUTICASONE/VILANTEROL 200-25 MCG/INH INHALER [14] IH SCH (08:29)
[2016-12-12] MEDS: SERTRALINE HCL 100 MG TABLET PO SCH (08:29)
[2016-12-12] MEDS: MULTIVITAMINS WITH MINERALS, THERAPEUTIC TABLET PO SCH (08:29)
[2016-12-12 16:07] VITALS: BP 138/82
[2016-12-13 02:14] VITALS: BP 122/84
[2016-12-13] MEDS: LORazepam 2 MG TABLET PO PRN (02:14)
[2016-12-13] MEDS: QUEtiapine FUMARATE 100 MG TABLET PO PRN (02:14)
[2016-12-13 07:48] VITALS: BP 111/52
[2016-12-13] MEDS: FLUTICASONE/VILANTEROL 200-25 MCG/INH INHALER [14] IH SCH (09:23)
[2016-12-13] MEDS: MULTIVITAMINS WITH MINERALS, THERAPEUTIC TABLET PO SCH (09:24)
[2016-12-13] MEDS: SERTRALINE HCL 100 MG TABLET PO SCH (09:24)
[2016-12-13 14:04] VITALS: BP 122/72
[2016-12-13 16:03] VITALS: BP 115/70
[2016-12-14 03:50] VITALS: BP 127/82
[2016-12-14] MEDS: SERTRALINE HCL 100 MG TABLET PO SCH (08:55)
[2016-12-14] MEDS: FLUTICASONE/VILANTEROL 200-25 MCG/INH INHALER [14] IH SCH (08:55)
[2016-12-14] MEDS: MULTIVITAMINS WITH MINERALS, THERAPEUTIC TABLET PO SCH (08:55)
[2016-12-14 09:08] VITALS: BP 124/81
[2016-12-14] MEDS: BENZOCAINE/MENTHOL LOZENGE MM PRN (12:21)
[2016-12-14 16:15] VITALS: BP 117/78
[2016-12-15 05:13] VITALS: BP 123/74
[2016-12-15 08:13] VITALS: BP 127/80
[2016-12-15] MEDS: MULTIVITAMINS WITH MINERALS, THERAPEUTIC TABLET PO SCH (08:29)
[2016-12-15] MEDS: FLUTICASONE/VILANTEROL 200-25 MCG/INH INHALER [14] IH SCH (08:29)
[2016-12-15] MEDS: SERTRALINE HCL 100 MG TABLET PO SCH (08:29)
[2016-12-15 16:05] VITALS: BP 128/83
[2016-12-15] MEDS: BENZOCAINE/MENTHOL LOZENGE MM PRN (22:09)
[2016-12-16 08:30] VITALS: BP 113/73
[2016-12-16] MEDS: FLUTICASONE/VILANTEROL 200-25 MCG/INH INHALER [14] IH SCH (09:40)
[2016-12-16] MEDS: MULTIVITAMINS WITH MINERALS, THERAPEUTIC TABLET PO SCH (09:40)
[2016-12-16] MEDS: SERTRALINE HCL 100 MG TABLET PO SCH (09:41)
[2016-12-16 16:06] VITALS: BP 131/83
[2016-12-17 05:29] VITALS: BP 106/60
[2016-12-17 08:36] VITALS: BP 111/61
[2016-12-17] MEDS: FLUTICASONE/VILANTEROL 200-25 MCG/INH INHALER [14] IH SCH (08:41)
[2016-12-17] MEDS: MULTIVITAMINS WITH MINERALS, THERAPEUTIC TABLET PO SCH (08:41)
[2016-12-17] MEDS: SERTRALINE HCL 100 MG TABLET PO SCH (08:42)
[2016-12-17 16:05] VITALS: BP 136/85
[2016-12-18 00:18] VITALS: BP 117/84
[2016-12-18] MEDS: SERTRALINE HCL 100 MG TABLET PO SCH (10:06)
[2016-12-18] MEDS: MULTIVITAMINS WITH MINERALS, THERAPEUTIC TABLET PO SCH (10:06)
[2016-12-18] MEDS: FLUTICASONE/VILANTEROL 200-25 MCG/INH INHALER [14] IH SCH (10:20)
[2016-12-18 10:30] VITALS: BP 136/75
[2016-12-19] MEDS: SERTRALINE HCL 100 MG TABLET PO SCH (09:00)
[2016-12-19] MEDS: FLUTICASONE/VILANTEROL 200-25 MCG/INH INHALER [14] IH SCH (09:00)
[2016-12-19] MEDS: MULTIVITAMINS WITH MINERALS, THERAPEUTIC TABLET PO SCH (09:00)
[2016-12-20] MEDS: QUEtiapine FUMARATE 100 MG TABLET PO PRN (02:02)
[2016-12-20 04:15] VITALS: BP 134/83
[2016-12-20 08:15] VITALS: BP 120/59
[2016-12-20] MEDS: FLUTICASONE/VILANTEROL 200-25 MCG/INH INHALER [14] IH SCH (08:31)
[2016-12-20] MEDS: MULTIVITAMINS WITH MINERALS, THERAPEUTIC TABLET PO SCH (08:31)
[2016-12-20] MEDS: SERTRALINE HCL 100 MG TABLET PO SCH (08:31)
[2016-12-20 16:06] VITALS: BP 134/89
[2016-12-21 06:26] VITALS: BP 124/70
[2016-12-21 08:03] VITALS: BP 126/87
[2016-12-21] MEDS: SERTRALINE HCL 100 MG TABLET PO SCH (08:54)
[2016-12-21] MEDS: MULTIVITAMINS WITH MINERALS, THERAPEUTIC TABLET PO SCH (08:54)
[2016-12-21] MEDS: FLUTICASONE/VILANTEROL 200-25 MCG/INH INHALER [14] IH SCH (08:55)
[2016-12-21] MEDS: PALIPERIDONE PALMITATE 234 MG/1.5 ML SYRINGE IM SCH (09:40)
[2016-12-21 16:07] VITALS: BP 137/82
[2016-12-22 00:50] VITALS: BP 121/84
[2016-12-22 08:15] VITALS: BP 127/75
[2016-12-22] MEDS: MULTIVITAMINS WITH MINERALS, THERAPEUTIC TABLET PO SCH (08:46)
[2016-12-22] MEDS: SERTRALINE HCL 100 MG TABLET PO SCH (08:46)
[2016-12-22] MEDS: FLUTICASONE/VILANTEROL 200-25 MCG/INH INHALER [14] IH SCH (08:47)
[2016-12-22] MEDS: LORazepam 2 MG TABLET PO PRN (14:03)
[2016-12-22 18:38] VITALS: BP 116/81
[2016-12-23 06:21] VITALS: BP 124/63
[2016-12-23] MEDS: MULTIVITAMINS WITH MINERALS, THERAPEUTIC TABLET PO SCH (08:25)
[2016-12-23] MEDS: SERTRALINE HCL 100 MG TABLET PO SCH (08:25)
[2016-12-23] MEDS: FLUTICASONE/VILANTEROL 200-25 MCG/INH INHALER [14] IH SCH (08:26)
[2016-12-23 08:58] VITALS: BP 127/76
[2016-12-23] MEDS ORDERED: DiphenhydrAMINE HCL 50 MG/ML VIAL ONE (14:28)
[2016-12-23] MEDS ORDERED: LORazepam 2 MG/ML VIAL ONE (14:28)
[2016-12-23] MEDS ORDERED: HALOPERIDOL LACTATE 5 MG/ML VIAL ONE (14:29)
[2016-12-23] MEDS ORDERED: LORazepam 2 MG/ML VIAL IM ONE (14:30)
[2016-12-23] MEDS ORDERED: DiphenhydrAMINE HCL 50 MG/ML VIAL IM ONE (14:30)
[2016-12-23] MEDS ORDERED: FluPHENAZine HCL 2.5 MG/ML INJ IM ONE ×2 (14:30→14:33)
[2016-12-23 16:30] VITALS: BP 131/76
[2016-12-24 00:30] VITALS: BP 105/60
[2016-12-24 08:29] VITALS: BP 127/88
[2016-12-24] MEDS: SERTRALINE HCL 100 MG TABLET PO SCH (08:53)
[2016-12-24] MEDS: MULTIVITAMINS WITH MINERALS, THERAPEUTIC TABLET PO SCH (08:53)
[2016-12-24] MEDS: FLUTICASONE/VILANTEROL 200-25 MCG/INH INHALER [14] IH SCH (08:53)
[2016-12-24 16:05] VITALS: BP 114/76
[2016-12-25 07:16] VITALS: BP 118/75
[2016-12-25 08:59] VITALS: BP 127/77
[2016-12-25] MEDS: SERTRALINE HCL 100 MG TABLET PO SCH (09:00)
[2016-12-25] MEDS: MULTIVITAMINS WITH MINERALS, THERAPEUTIC TABLET PO SCH (09:00)
[2016-12-25] MEDS: FLUTICASONE/VILANTEROL 200-25 MCG/INH INHALER [14] IH SCH (09:01)
[2016-12-25] MEDS: MAG HYDROX/AL HYDROX/SIMETH ES 30 ML SUSPENSION UDCUP PO PRN (19:00)
[2016-12-25 21:41] VITALS: BP 125/75
[2016-12-26 06:06] VITALS: BP 136/75
[2016-12-26 08:05] VITALS: BP 118/64
[2016-12-26] MEDS: SERTRALINE HCL 100 MG TABLET PO SCH (08:48)
[2016-12-26] MEDS: FLUTICASONE/VILANTEROL 200-25 MCG/INH INHALER [14] IH SCH (08:48)
[2016-12-26] MEDS: MULTIVITAMINS WITH MINERALS, THERAPEUTIC TABLET PO SCH (08:48)
[2016-12-26 16:10] VITALS: BP 116/74
[2016-12-27 06:25] VITALS: BP 138/74
[2016-12-27 09:11] VITALS: BP 133/82
[2016-12-27] MEDS: MULTIVITAMINS WITH MINERALS, THERAPEUTIC TABLET PO SCH (09:31)
[2016-12-27] MEDS: FLUTICASONE/VILANTEROL 200-25 MCG/INH INHALER [14] IH SCH (09:31)
[2016-12-27] MEDS: SERTRALINE HCL 100 MG TABLET PO SCH (09:31)
[2016-12-27 16:15] VITALS: BP 108/66
[2016-12-28 00:19] VITALS: BP 120/60
[2016-12-28] MEDS: FLUTICASONE/VILANTEROL 200-25 MCG/INH INHALER [14] IH SCH (08:48)
[2016-12-28] MEDS: SERTRALINE HCL 100 MG TABLET PO SCH (08:49)
[2016-12-28] MEDS: MULTIVITAMINS WITH MINERALS, THERAPEUTIC TABLET PO SCH (08:49)
[2016-12-28 09:13] VITALS: BP 120/66
[2016-12-28 16:02] VITALS: BP 134/85
[2016-12-28] MEDS: MAGNESIUM SULFATE 454 GM BOX TP SCH (18:35)
[2016-12-28 20:54] VITALS: BP 137/71
[2016-12-28] MEDS: MAG HYDROX/AL HYDROX/SIMETH ES 30 ML SUSPENSION UDCUP PO PRN (21:34)
[2016-12-29 00:13] VITALS: BP 122/70
[2016-12-29 08:10] VITALS: BP 132/86
[2016-12-29] MEDS: MULTIVITAMINS WITH MINERALS, THERAPEUTIC TABLET PO SCH (09:32)
[2016-12-29] MEDS: SERTRALINE HCL 100 MG TABLET PO SCH (09:32)
[2016-12-29] MEDS: FLUTICASONE/VILANTEROL 200-25 MCG/INH INHALER [14] IH SCH (09:32)
[2016-12-29] MEDS: MAGNESIUM SULFATE 454 GM BOX TP SCH (09:50)
[2016-12-29 16:10] VITALS: BP 110/71
[2016-12-29] MEDS: CARBAMIDE PEROXIDE 6.5% 15 ML OTIC SOLUTION AU SCH (20:30)
[2016-12-30 00:45] VITALS: BP 115/70
[2016-12-30 08:51] VITALS: BP 124/79
[2016-12-30] MEDS: MULTIVITAMINS WITH MINERALS, THERAPEUTIC TABLET PO SCH (08:55)
[2016-12-30] MEDS: SERTRALINE HCL 100 MG TABLET PO SCH (08:55)
[2016-12-30] MEDS: FLUTICASONE/VILANTEROL 200-25 MCG/INH INHALER [14] IH SCH (08:56)
[2016-12-30] MEDS: MAGNESIUM SULFATE 454 GM BOX TP SCH (09:45)
[2016-12-30] MEDS: LORazepam 2 MG TABLET PO PRN (12:21)
[2016-12-30 16:07] VITALS: BP 121/85
[2016-12-30] MEDS: CARBAMIDE PEROXIDE 6.5% 15 ML OTIC SOLUTION AU SCH (20:35)
[2016-12-31 06:14] VITALS: BP 116/68
[2016-12-31 08:41] VITALS: BP 113/70
[2016-12-31] MEDS: SERTRALINE HCL 100 MG TABLET PO SCH (09:18)
[2016-12-31] MEDS: FLUTICASONE/VILANTEROL 200-25 MCG/INH INHALER [14] IH SCH (09:18)
[2016-12-31] MEDS: MULTIVITAMINS WITH MINERALS, THERAPEUTIC TABLET PO SCH (09:18)
[2016-12-31] MEDS: MAGNESIUM SULFATE 454 GM BOX TP SCH (09:18)
[2016-12-31] MEDS: IBUPROFEN 600 MG TABLET PO PRN (09:46)
[2016-12-31 16:03] VITALS: BP 125/84
[2016-12-31] MEDS: CARBAMIDE PEROXIDE 6.5% 15 ML OTIC SOLUTION AU SCH (20:47)
[2017-01-01] MEDS: ZOLPIDEM TARTRATE 10 MG TABLET PO PRN (03:10)
[2017-01-01 03:17] VITALS: BP 124/82
[2017-01-01] MEDS: FLUTICASONE/VILANTEROL 200-25 MCG/INH INHALER [14] IH SCH (08:10)
[2017-01-01] MEDS: MAGNESIUM SULFATE 454 GM BOX TP SCH (08:10)
[2017-01-01] MEDS: MULTIVITAMINS WITH MINERALS, THERAPEUTIC TABLET PO SCH (08:10)
[2017-01-01] MEDS: SERTRALINE HCL 100 MG TABLET PO SCH (08:10)
[2017-01-01 09:12] VITALS: BP 125/84
[2017-01-01] MEDS ORDERED: LORazepam 2 MG/ML VIAL IM ONE (15:15)
[2017-01-01] MEDS ORDERED: DiphenhydrAMINE HCL 50 MG/ML VIAL IM ONE (15:15)
[2017-01-01] MEDS ORDERED: FluPHENAZine HCL 2.5 MG/ML INJ IM ONE (15:15)
[2017-01-01 16:30] VITALS: BP 116/63
[2017-01-01] MEDS: CARBAMIDE PEROXIDE 6.5% 15 ML OTIC SOLUTION AU SCH (20:48)
[2017-01-02 05:05] VITALS: BP 123/80
[2017-01-02 08:25] VITALS: BP 105/63
[2017-01-02] MEDS: MULTIVITAMINS WITH MINERALS, THERAPEUTIC TABLET PO SCH (09:28)
[2017-01-02] MEDS: SERTRALINE HCL 100 MG TABLET PO SCH (09:28)
[2017-01-02] MEDS: FLUTICASONE/VILANTEROL 200-25 MCG/INH INHALER [14] IH SCH (09:28)
[2017-01-02] MEDS: MAGNESIUM SULFATE 454 GM BOX TP SCH (10:06)
[2017-01-02 16:10] VITALS: BP 120/75
[2017-01-02] MEDS: CARBAMIDE PEROXIDE 6.5% 15 ML OTIC SOLUTION AU SCH (20:57)
[2017-01-02] MEDS: ZOLPIDEM TARTRATE 10 MG TABLET PO PRN (21:47)
[2017-01-03 04:00] VITALS: BP 118/68
[2017-01-03] MEDS: MULTIVITAMINS WITH MINERALS, THERAPEUTIC TABLET PO SCH (08:24)
[2017-01-03] MEDS: SERTRALINE HCL 100 MG TABLET PO SCH (08:24)
[2017-01-03] MEDS: FLUTICASONE/VILANTEROL 200-25 MCG/INH INHALER [14] IH SCH (08:24)
[2017-01-03 08:33] VITALS: BP_SYST 110; BP_SYST 118; BP_DIAS 73; BP_DIAS 75
[2017-01-03 16:00] VITALS: BP 122/85
[2017-01-03] MEDS: MAG HYDROX/AL HYDROX/SIMETH ES 30 ML SUSPENSION UDCUP PO PRN (20:54)
[2017-01-04 05:05] VITALS: BP 100/70
[2017-01-04] MEDS: MULTIVITAMINS WITH MINERALS, THERAPEUTIC TABLET PO SCH (08:33)
[2017-01-04 09:02] VITALS: BP 123/65
[2017-01-04] MEDS: FLUTICASONE/VILANTEROL 200-25 MCG/INH INHALER [14] IH SCH (09:30)
[2017-01-04] MEDS: SERTRALINE HCL 100 MG TABLET PO SCH (09:36)
[2017-01-04 16:00] VITALS: BP 115/65
[2017-01-05 06:45] VITALS: BP 108/73
[2017-01-05 08:10] VITALS: BP 124/67
[2017-01-05] MEDS: FLUTICASONE/VILANTEROL 200-25 MCG/INH INHALER [14] IH SCH (09:52)
[2017-01-05] MEDS: MULTIVITAMINS WITH MINERALS, THERAPEUTIC TABLET PO SCH (09:52)
[2017-01-05] MEDS: SERTRALINE HCL 100 MG TABLET PO SCH (09:52)
[2017-01-05] MEDS: IBUPROFEN 600 MG TABLET PO PRN (09:52)
[2017-01-05 16:02] VITALS: BP 125/74
[2017-01-06 06:36] VITALS: BP 111/65
[2017-01-06] MEDS: SERTRALINE HCL 100 MG TABLET PO SCH (08:18)
[2017-01-06] MEDS: FLUTICASONE/VILANTEROL 200-25 MCG/INH INHALER [14] IH SCH (08:18)
[2017-01-06] MEDS: MULTIVITAMINS WITH MINERALS, THERAPEUTIC TABLET PO SCH (08:18)
[2017-01-06] MEDS: IBUPROFEN 600 MG TABLET PO PRN (08:20)
[2017-01-06 08:41] VITALS: BP 119/70
[2017-01-06] MEDS: LORazepam 2 MG TABLET PO PRN (08:48)
[2017-01-06 16:02] VITALS: BP 117/84
[2017-01-07 08:06] VITALS: BP 121/72
[2017-01-07] MEDS: MULTIVITAMINS WITH MINERALS, THERAPEUTIC TABLET PO SCH (09:15)
[2017-01-07] MEDS: FLUTICASONE/VILANTEROL 200-25 MCG/INH INHALER [14] IH SCH (09:15)
[2017-01-07] MEDS: SERTRALINE HCL 100 MG TABLET PO SCH (09:15)
[2017-01-07] MEDS: DICLOFENAC SODIUM 1% 100 GM GEL [2GM] TP SCH ×2 (10:45→17:15)
[2017-01-07 16:33] VITALS: BP 119/72
[2017-01-07] MEDS: LORazepam 2 MG TABLET PO PRN (21:28)
[2017-01-08 06:08] VITALS: BP 125/82
[2017-01-08] MEDS ORDERED: LORazepam 2 MG/ML VIAL IM ONE (08:15)
[2017-01-08] MEDS ORDERED: DiphenhydrAMINE HCL 50 MG/ML VIAL IM ONE (08:15)
[2017-01-08] MEDS ORDERED: FluPHENAZine HCL 2.5 MG/ML INJ IM ONE (08:15)
[2017-01-08 09:22] VITALS: BP 118/78
[2017-01-08] MEDS: SERTRALINE HCL 100 MG TABLET PO SCH (09:38)
[2017-01-08] MEDS: MULTIVITAMINS WITH MINERALS, THERAPEUTIC TABLET PO SCH (09:38)
[2017-01-08] MEDS: DICLOFENAC SODIUM 1% 100 GM GEL [2GM] TP SCH ×2 (09:39→16:32)
[2017-01-08] MEDS: FLUTICASONE/VILANTEROL 200-25 MCG/INH INHALER [14] IH SCH (09:39)
[2017-01-08 16:00] VITALS: BP 111/78
[2017-01-09 06:19] VITALS: BP 120/71
[2017-01-09 09:04] VITALS: BP 123/76
[2017-01-09] MEDS: MULTIVITAMINS WITH MINERALS, THERAPEUTIC TABLET PO SCH (09:14)
[2017-01-09] MEDS: DICLOFENAC SODIUM 1% 100 GM GEL [2GM] TP SCH ×2 (09:14→16:26)
[2017-01-09] MEDS: FLUTICASONE/VILANTEROL 200-25 MCG/INH INHALER [14] IH SCH (09:14)
[2017-01-09] MEDS: SERTRALINE HCL 100 MG TABLET PO SCH (09:14)
[2017-01-09 16:11] VITALS: BP 124/62
[2017-01-10 05:59] VITALS: BP 123/81
[2017-01-10 08:55] VITALS: BP 112/70
[2017-01-10] MEDS: DICLOFENAC SODIUM 1% 100 GM GEL [2GM] TP SCH ×2 (08:55→16:34)
[2017-01-10] MEDS: MULTIVITAMINS WITH MINERALS, THERAPEUTIC TABLET PO SCH (08:55)
[2017-01-10] MEDS: SERTRALINE HCL 100 MG TABLET PO SCH (08:55)
[2017-01-10] MEDS: FLUTICASONE/VILANTEROL 200-25 MCG/INH INHALER [14] IH SCH (08:55)
[2017-01-10 16:07] VITALS: BP 124/82
[2017-01-11 06:21] VITALS: BP 108/72
[2017-01-11] MEDS: FLUTICASONE/VILANTEROL 200-25 MCG/INH INHALER [14] IH SCH (08:35)
[2017-01-11] MEDS: DICLOFENAC SODIUM 1% 100 GM GEL [2GM] TP SCH ×2 (08:35→16:36)
[2017-01-11] MEDS: MULTIVITAMINS WITH MINERALS, THERAPEUTIC TABLET PO SCH (08:35)
[2017-01-11] MEDS: SERTRALINE HCL 100 MG TABLET PO SCH (08:35)
[2017-01-11 08:50] VITALS: BP 121/66
[2017-01-11] MEDS: LORazepam 2 MG TABLET PO PRN (09:04)
[2017-01-11 16:31] VITALS: BP 116/64
[2017-01-12 06:23] VITALS: BP 118/70
[2017-01-12 08:07] VITALS: BP 112/75
[2017-01-12] MEDS: DICLOFENAC SODIUM 1% 100 GM GEL [2GM] TP SCH ×2 (08:33→16:25)
[2017-01-12] MEDS: MULTIVITAMINS WITH MINERALS, THERAPEUTIC TABLET PO SCH (08:33)
[2017-01-12] MEDS: LORazepam 2 MG TABLET PO PRN (08:33)
[2017-01-12] MEDS: SERTRALINE HCL 100 MG TABLET PO SCH (08:33)
[2017-01-12] MEDS: FLUTICASONE/VILANTEROL 200-25 MCG/INH INHALER [14] IH SCH (08:33)
[2017-01-12 16:06] VITALS: BP 108/72
[2017-01-13 07:04] VITALS: BP 119/82
[2017-01-13 08:12] VITALS: BP 117/81
[2017-01-13] MEDS: DICLOFENAC SODIUM 1% 100 GM GEL [2GM] TP SCH ×2 (08:35→16:31)
[2017-01-13] MEDS: MULTIVITAMINS WITH MINERALS, THERAPEUTIC TABLET PO SCH (08:35)
[2017-01-13] MEDS: SERTRALINE HCL 100 MG TABLET PO SCH (08:35)
[2017-01-13] MEDS: FLUTICASONE/VILANTEROL 200-25 MCG/INH INHALER [14] IH SCH (08:35)
[2017-01-13] MEDS: LORazepam 2 MG TABLET PO PRN (08:35)
[2017-01-13 16:07] VITALS: BP 126/85
[2017-01-14 06:37] VITALS: BP 127/75
[2017-01-14 08:04] VITALS: BP 121/68
[2017-01-14] MEDS: MULTIVITAMINS WITH MINERALS, THERAPEUTIC TABLET PO SCH (09:30)
[2017-01-14] MEDS: SERTRALINE HCL 100 MG TABLET PO SCH (09:30)
[2017-01-14] MEDS: FLUTICASONE/VILANTEROL 200-25 MCG/INH INHALER [14] IH SCH (09:30)
[2017-01-14] MEDS: DICLOFENAC SODIUM 1% 100 GM GEL [2GM] TP SCH ×2 (09:32→16:34)
[2017-01-14 16:18] VITALS: BP 119/79
[2017-01-15] VITALS: BP 121/77
[2017-01-15] MEDS: SERTRALINE HCL 100 MG TABLET PO SCH (08:22)
[2017-01-15] MEDS: MULTIVITAMINS WITH MINERALS, THERAPEUTIC TABLET PO SCH (08:22)
[2017-01-15] MEDS: DICLOFENAC SODIUM 1% 100 GM GEL [2GM] TP SCH ×2 (08:24→17:05)
[2017-01-15] MEDS: FLUTICASONE/VILANTEROL 200-25 MCG/INH INHALER [14] IH SCH (08:26)
[2017-01-15] MEDS: LORazepam 2 MG TABLET PO PRN (08:27)
[2017-01-15 16:04] VITALS: BP 123/85
[2017-01-16 07:03] VITALS: BP 114/71
[2017-01-16] MEDS: FLUTICASONE/VILANTEROL 200-25 MCG/INH INHALER [14] IH SCH (08:27)
[2017-01-16] MEDS: MULTIVITAMINS WITH MINERALS, THERAPEUTIC TABLET PO SCH (08:27)
[2017-01-16] MEDS: SERTRALINE HCL 100 MG TABLET PO SCH (08:27)
[2017-01-16 08:28] VITALS: BP 126/86
[2017-01-16] MEDS: DICLOFENAC SODIUM 1% 100 GM GEL [2GM] TP SCH ×2 (08:28→16:30)
[2017-01-16 16:11] VITALS: BP 111/60
[2017-01-17 07:07] VITALS: BP 106/81
[2017-01-17] MEDS: SERTRALINE HCL 100 MG TABLET PO SCH (08:27)
[2017-01-17] MEDS: MULTIVITAMINS WITH MINERALS, THERAPEUTIC TABLET PO SCH (08:27)
[2017-01-17] MEDS: FLUTICASONE/VILANTEROL 200-25 MCG/INH INHALER [14] IH SCH (08:27)
[2017-01-17] MEDS: DICLOFENAC SODIUM 1% 100 GM GEL [2GM] TP SCH ×2 (08:27→16:35)
[2017-01-17 08:48] VITALS: BP 119/78
[2017-01-17 16:08] VITALS: BP 112/74
[2017-01-18 01:40] VITALS: BP 113/85
[2017-01-18 08:05] VITALS: BP 134/84
[2017-01-18] MEDS: FLUTICASONE/VILANTEROL 200-25 MCG/INH INHALER [14] IH SCH (08:25)
[2017-01-18] MEDS: SERTRALINE HCL 100 MG TABLET PO SCH (08:25)
[2017-01-18] MEDS: MULTIVITAMINS WITH MINERALS, THERAPEUTIC TABLET PO SCH (08:25)
[2017-01-18] MEDS: DICLOFENAC SODIUM 1% 100 GM GEL [2GM] TP SCH ×2 (08:26→17:38)
[2017-01-18] MEDS: PALIPERIDONE PALMITATE 234 MG/1.5 ML SYRINGE IM SCH (10:50)
[2017-01-18 16:03] VITALS: BP 137/86
[2017-01-18] MEDS: IBUPROFEN 600 MG TABLET PO PRN (19:03)
[2017-01-19 00:47] VITALS: BP 109/62
[2017-01-19 08:10] VITALS: BP 124/72
[2017-01-19] MEDS: SERTRALINE HCL 100 MG TABLET PO SCH (09:59)
[2017-01-19] MEDS: FLUTICASONE/VILANTEROL 200-25 MCG/INH INHALER [14] IH SCH (09:59)
[2017-01-19] MEDS: MULTIVITAMINS WITH MINERALS, THERAPEUTIC TABLET PO SCH (09:59)
[2017-01-19] MEDS: DICLOFENAC SODIUM 1% 100 GM GEL [2GM] TP SCH ×2 (09:59→16:35)
[2017-01-19 16:08] VITALS: BP 122/85
[2017-01-19] MEDS: ZOLPIDEM TARTRATE 10 MG TABLET PO PRN (22:31)
[2017-01-20 07:29] VITALS: BP 119/69
[2017-01-20 08:17] VITALS: BP 112/69
[2017-01-20] MEDS: DICLOFENAC SODIUM 1% 100 GM GEL [2GM] TP SCH ×2 (08:32→16:17)
[2017-01-20] MEDS: SERTRALINE HCL 100 MG TABLET PO SCH (08:32)
[2017-01-20] MEDS: MULTIVITAMINS WITH MINERALS, THERAPEUTIC TABLET PO SCH (08:32)
[2017-01-20] MEDS: FLUTICASONE/VILANTEROL 200-25 MCG/INH INHALER [14] IH SCH (08:32)
[2017-01-20 14:54] VITALS: BP 114/65
[2017-01-20] MEDS: IBUPROFEN 600 MG TABLET PO PRN (14:54)
[2017-01-20 16:16] VITALS: BP 138/88
[2017-01-20 17:02] VITALS: BP 138/88
[2017-01-20] MEDS: ACETAMINOPHEN 325 MG TABLET PO PRN (17:02)
[2017-01-21 04:54] VITALS: BP 128/87
[2017-01-21] MEDS ORDERED: FluPHENAZine HCL 2.5 MG/ML INJ IM ONE (05:15)
[2017-01-21] MEDS ORDERED: LORazepam 2 MG/ML VIAL ONE (05:16)
[2017-01-21] MEDS: FluPHENAZine HCL 2.5 MG/ML INJ IM ONE ×2 (05:30→05:46)
[2017-01-21] MEDS: DiphenhydrAMINE HCL 50 MG/ML VIAL IM ONE ×2 (05:30→05:47)
[2017-01-21] MEDS: LORazepam 2 MG/ML VIAL IM ONE ×2 (05:30→05:47)
[2017-01-21 06:30] VITALS: BP 121/86
[2017-01-21 08:37] VITALS: BP 123/68
[2017-01-21] MEDS: SERTRALINE HCL 100 MG TABLET PO SCH (09:22)
[2017-01-21] MEDS: FLUTICASONE/VILANTEROL 200-25 MCG/INH INHALER [14] IH SCH (09:22)
[2017-01-21] MEDS: MULTIVITAMINS WITH MINERALS, THERAPEUTIC TABLET PO SCH (09:22)
[2017-01-21] MEDS: DICLOFENAC SODIUM 1% 100 GM GEL [2GM] TP SCH ×2 (09:27→17:02)
[2017-01-21 16:09] VITALS: BP 123/84
[2017-01-22 08:28] VITALS: BP 124/76
[2017-01-22] MEDS: MULTIVITAMINS WITH MINERALS, THERAPEUTIC TABLET PO SCH (09:23)
[2017-01-22] MEDS: SERTRALINE HCL 100 MG TABLET PO SCH (09:24)
[2017-01-22] MEDS: DICLOFENAC SODIUM 1% 100 GM GEL [2GM] TP SCH ×2 (09:24→16:53)
[2017-01-22] MEDS: FLUTICASONE/VILANTEROL 200-25 MCG/INH INHALER [14] IH SCH (09:24)
[2017-01-22 16:36] VITALS: BP 123/74
[2017-01-23 06:25] VITALS: BP 106/76
[2017-01-23] MEDS: IBUPROFEN 600 MG TABLET PO PRN (06:41)
[2017-01-23 08:17] VITALS: BP 123/65
[2017-01-23] MEDS: SERTRALINE HCL 100 MG TABLET PO SCH (10:12)
[2017-01-23] MEDS: DICLOFENAC SODIUM 1% 100 GM GEL [2GM] TP SCH ×2 (10:12→17:16)
[2017-01-23] MEDS: FLUTICASONE/VILANTEROL 200-25 MCG/INH INHALER [14] IH SCH (10:12)
[2017-01-23] MEDS: MULTIVITAMINS WITH MINERALS, THERAPEUTIC TABLET PO SCH (10:12)
[2017-01-23 16:08] VITALS: BP 125/83
[2017-01-23] MEDS: CARBAMIDE PEROXIDE 6.5% 15 ML OTIC SOLUTION AU SCH (20:40)
[2017-01-24 01:12] VITALS: BP 123/83
[2017-01-24 02:30] VITALS: BP 121/95
[2017-01-24] MEDS: ZOLPIDEM TARTRATE 10 MG TABLET PO PRN (02:36)
[2017-01-24 08:23] VITALS: BP 125/89
[2017-01-24] MEDS: MULTIVITAMINS WITH MINERALS, THERAPEUTIC TABLET PO SCH (09:23)
[2017-01-24] MEDS: SERTRALINE HCL 100 MG TABLET PO SCH (09:23)
[2017-01-24] MEDS: FLUTICASONE/VILANTEROL 200-25 MCG/INH INHALER [14] IH SCH (09:24)
[2017-01-24] MEDS: DICLOFENAC SODIUM 1% 100 GM GEL [2GM] TP SCH ×2 (09:24→16:52)
[2017-01-24 16:18] VITALS: BP 114/75
[2017-01-24] MEDS: CARBAMIDE PEROXIDE 6.5% 15 ML OTIC SOLUTION AU SCH (20:46)
[2017-01-25 01:00] VITALS: BP 116/81
[2017-01-25 08:31] VITALS: BP 123/86
[2017-01-25] MEDS: MULTIVITAMINS WITH MINERALS, THERAPEUTIC TABLET PO SCH (09:11)
[2017-01-25] MEDS: SERTRALINE HCL 100 MG TABLET PO SCH (09:11)
[2017-01-25] MEDS: DICLOFENAC SODIUM 1% 100 GM GEL [2GM] TP SCH ×2 (09:12→16:50)
[2017-01-25] MEDS: FLUTICASONE/VILANTEROL 200-25 MCG/INH INHALER [14] IH SCH (09:13)
[2017-01-25] MEDS: LORazepam 2 MG TABLET PO PRN (13:57)
[2017-01-25] MEDS: MAG HYDROX/AL HYDROX/SIMETH ES 30 ML SUSPENSION UDCUP PO PRN (13:59)
[2017-01-25 16:15] VITALS: BP 112/75
[2017-01-25] MEDS: CARBAMIDE PEROXIDE 6.5% 15 ML OTIC SOLUTION AU SCH (20:43)
[2017-01-26 03:31] VITALS: BP 101/61
[2017-01-26 08:20] VITALS: BP 119/67
[2017-01-26] MEDS: SERTRALINE HCL 100 MG TABLET PO SCH (08:37)
[2017-01-26] MEDS: MULTIVITAMINS WITH MINERALS, THERAPEUTIC TABLET PO SCH (08:37)
[2017-01-26] MEDS: FLUTICASONE/VILANTEROL 200-25 MCG/INH INHALER [14] IH SCH (08:38)
[2017-01-26] MEDS: DICLOFENAC SODIUM 1% 100 GM GEL [2GM] TP SCH ×2 (08:38→17:01)
[2017-01-26] MEDS: MAGNESIUM SULFATE 454 GM BOX TP SCH (09:07)
[2017-01-26] MEDS: ONDANSETRON HCL 4 MG TABLET PO PRN (15:51)
[2017-01-26 16:04] VITALS: BP 123/86
[2017-01-26] MEDS: CARBAMIDE PEROXIDE 6.5% 15 ML OTIC SOLUTION AU SCH (21:17)
[2017-01-27 00:19] VITALS: BP 102/65
[2017-01-27 08:03] VITALS: BP 116/61
[2017-01-27] MEDS: MULTIVITAMINS WITH MINERALS, THERAPEUTIC TABLET PO SCH (09:38)
[2017-01-27] MEDS: MAGNESIUM SULFATE 454 GM BOX TP SCH (09:38)
[2017-01-27] MEDS: DICLOFENAC SODIUM 1% 100 GM GEL [2GM] TP SCH ×2 (09:38→17:10)
[2017-01-27] MEDS: SERTRALINE HCL 100 MG TABLET PO SCH (09:38)
[2017-01-27] MEDS: FLUTICASONE/VILANTEROL 200-25 MCG/INH INHALER [14] IH SCH (09:38)
[2017-01-27 16:06] VITALS: BP 120/74
[2017-01-27] MEDS: CARBAMIDE PEROXIDE 6.5% 15 ML OTIC SOLUTION AU SCH (20:38)
[2017-01-28 05:51] VITALS: BP 101/60
[2017-01-28 08:31] VITALS: BP 120/67
[2017-01-28] MEDS: FLUTICASONE/VILANTEROL 200-25 MCG/INH INHALER [14] IH SCH (08:45)
[2017-01-28] MEDS: MULTIVITAMINS WITH MINERALS, THERAPEUTIC TABLET PO SCH (08:45)
[2017-01-28] MEDS: SERTRALINE HCL 100 MG TABLET PO SCH (08:45)
[2017-01-28] MEDS: MAGNESIUM SULFATE 454 GM BOX TP SCH (08:46)
[2017-01-28] MEDS: DICLOFENAC SODIUM 1% 100 GM GEL [2GM] TP SCH ×2 (08:46→16:38)
[2017-01-28 18:32] VITALS: BP 122/76
[2017-01-29 06:43] VITALS: BP 96/71
[2017-01-29] MEDS: FLUTICASONE/VILANTEROL 200-25 MCG/INH INHALER [14] IH SCH (09:00)
[2017-01-29] MEDS: MULTIVITAMINS WITH MINERALS, THERAPEUTIC TABLET PO SCH (09:17)
[2017-01-29] MEDS: SERTRALINE HCL 100 MG TABLET PO SCH (09:17)
[2017-01-29] MEDS: DICLOFENAC SODIUM 1% 100 GM GEL [2GM] TP SCH ×2 (09:19→16:56)
[2017-01-29] MEDS: MAGNESIUM SULFATE 454 GM BOX TP SCH (09:20)
[2017-01-29 14:08] VITALS: BP 119/69
[2017-01-29 16:05] VITALS: BP 119/86
[2017-01-30 06:39] VITALS: BP 119/87
[2017-01-30 08:03] VITALS: BP 120/62
[2017-01-30] MEDS: SERTRALINE HCL 100 MG TABLET PO SCH (08:28)
[2017-01-30] MEDS: MAGNESIUM SULFATE 454 GM BOX TP SCH (08:28)
[2017-01-30] MEDS: MULTIVITAMINS WITH MINERALS, THERAPEUTIC TABLET PO SCH (08:28)
[2017-01-30] MEDS: FLUTICASONE/VILANTEROL 200-25 MCG/INH INHALER [14] IH SCH (08:29)
[2017-01-30] MEDS: DICLOFENAC SODIUM 1% 100 GM GEL [2GM] TP SCH ×2 (08:29→17:13)
[2017-01-30 16:10] VITALS: BP 122/84
[2017-01-31 06:03] VITALS: BP 109/73
[2017-01-31 08:05] VITALS: BP 123/97
[2017-01-31] MEDS: SERTRALINE HCL 100 MG TABLET PO SCH (09:06)
[2017-01-31] MEDS: DICLOFENAC SODIUM 1% 100 GM GEL [2GM] TP SCH ×2 (09:06→16:36)
[2017-01-31] MEDS: FLUTICASONE/VILANTEROL 200-25 MCG/INH INHALER [14] IH SCH (09:06)
[2017-01-31] MEDS: MULTIVITAMINS WITH MINERALS, THERAPEUTIC TABLET PO SCH (09:06)
[2017-01-31 19:24] VITALS: BP 120/86
[2017-02-01 05:54] VITALS: BP 134/72
[2017-02-01 08:12] VITALS: BP 124/74
[2017-02-01] MEDS: SERTRALINE HCL 100 MG TABLET PO SCH (08:23)
[2017-02-01] MEDS: FLUTICASONE/VILANTEROL 200-25 MCG/INH INHALER [14] IH SCH (08:24)
[2017-02-01] MEDS: DICLOFENAC SODIUM 1% 100 GM GEL [2GM] TP SCH ×2 (08:24→17:10)
[2017-02-01] MEDS: MULTIVITAMINS WITH MINERALS, THERAPEUTIC TABLET PO SCH (08:24)
[2017-02-01 16:10] VITALS: BP 124/84
[2017-02-02 00:02] VITALS: BP 131/74
[2017-02-02 08:20] VITALS: BP 116/77
[2017-02-02] MEDS: FLUTICASONE/VILANTEROL 200-25 MCG/INH INHALER [14] IH SCH (09:10)
[2017-02-02] MEDS: MULTIVITAMINS WITH MINERALS, THERAPEUTIC TABLET PO SCH (09:11)
[2017-02-02] MEDS: SERTRALINE HCL 100 MG TABLET PO SCH (09:11)
[2017-02-02] MEDS: DICLOFENAC SODIUM 1% 100 GM GEL [2GM] TP SCH ×2 (09:12→16:35)
[2017-02-02 10:51] VITALS: BP 110/72
[2017-02-02] MEDS: IBUPROFEN 600 MG TABLET PO PRN (10:57)
[2017-02-02 16:30] VITALS: BP 123/71
[2017-02-03 06:52] VITALS: BP 115/76
[2017-02-03 08:24] VITALS: BP 128/90
[2017-02-03] MEDS: SERTRALINE HCL 100 MG TABLET PO SCH (08:32)
[2017-02-03] MEDS: MULTIVITAMINS WITH MINERALS, THERAPEUTIC TABLET PO SCH (08:32)
[2017-02-03] MEDS: FLUTICASONE/VILANTEROL 200-25 MCG/INH INHALER [14] IH SCH (08:32)
[2017-02-03] MEDS: DICLOFENAC SODIUM 1% 100 GM GEL [2GM] TP SCH ×2 (08:33→16:40)
[2017-02-03 16:00] VITALS: BP 122/89
[2017-02-03 19:27] VITALS: BP 119/83
[2017-02-03] MEDS: IBUPROFEN 600 MG TABLET PO PRN (19:30)
[2017-02-04 05:55] VITALS: BP 116/73
[2017-02-04 08:13] VITALS: BP 142/81
[2017-02-04] MEDS: MULTIVITAMINS WITH MINERALS, THERAPEUTIC TABLET PO SCH (08:20)
[2017-02-04] MEDS: SERTRALINE HCL 100 MG TABLET PO SCH (08:20)
[2017-02-04] MEDS: DICLOFENAC SODIUM 1% 100 GM GEL [2GM] TP SCH ×2 (08:20→16:36)
[2017-02-04] MEDS: FLUTICASONE/VILANTEROL 200-25 MCG/INH INHALER [14] IH SCH (08:20)
[2017-02-04 16:08] VITALS: BP 119/76
[2017-02-05 01:46] VITALS: BP 103/60
[2017-02-05 08:03] VITALS: BP 100/60
[2017-02-05] MEDS: SERTRALINE HCL 100 MG TABLET PO SCH (09:04)
[2017-02-05] MEDS: MULTIVITAMINS WITH MINERALS, THERAPEUTIC TABLET PO SCH (09:04)
[2017-02-05] MEDS: FLUTICASONE/VILANTEROL 200-25 MCG/INH INHALER [14] IH SCH (09:05)
[2017-02-05] MEDS: DICLOFENAC SODIUM 1% 100 GM GEL [2GM] TP SCH ×2 (09:05→16:32)
[2017-02-05 16:02] VITALS: BP 122/89
[2017-02-06 07:01] VITALS: BP 123/77
[2017-02-06] MEDS: MULTIVITAMINS WITH MINERALS, THERAPEUTIC TABLET PO SCH (09:29)
[2017-02-06] MEDS: SERTRALINE HCL 100 MG TABLET PO SCH (09:29)
[2017-02-06] MEDS: FLUTICASONE/VILANTEROL 200-25 MCG/INH INHALER [14] IH SCH (09:29)
[2017-02-06] MEDS: DICLOFENAC SODIUM 1% 100 GM GEL [2GM] TP SCH ×2 (09:29→17:04)
[2017-02-06 16:15] VITALS: BP 123/86
[2017-02-07 07:14] VITALS: BP 118/85
[2017-02-07 08:07] VITALS: BP 116/87
[2017-02-07] MEDS: SERTRALINE HCL 100 MG TABLET PO SCH (09:11)
[2017-02-07] MEDS: DICLOFENAC SODIUM 1% 100 GM GEL [2GM] TP SCH ×2 (09:12→16:11)
[2017-02-07] MEDS: MULTIVITAMINS WITH MINERALS, THERAPEUTIC TABLET PO SCH (09:12)
[2017-02-07] MEDS: FLUTICASONE/VILANTEROL 200-25 MCG/INH INHALER [14] IH SCH (09:12)
[2017-02-07 16:06] VITALS: BP_SYST 104; BP_SYST 131; BP_DIAS 70; BP_DIAS 86
[2017-02-07] MEDS: MAG HYDROX/AL HYDROX/SIMETH ES 30 ML SUSPENSION UDCUP PO PRN (22:05)
[2017-02-08 01:46] VITALS: BP 129/83
[2017-02-08] MEDS: SERTRALINE HCL 100 MG TABLET PO SCH (08:17)
[2017-02-08] MEDS: MULTIVITAMINS WITH MINERALS, THERAPEUTIC TABLET PO SCH (08:17)
[2017-02-08] MEDS: FLUTICASONE/VILANTEROL 200-25 MCG/INH INHALER [14] IH SCH (08:18)
[2017-02-08] MEDS: DICLOFENAC SODIUM 1% 100 GM GEL [2GM] TP SCH ×2 (08:19→16:32)
[2017-02-08 08:25] VITALS: BP 104/60
[2017-02-08 16:00] VITALS: BP 118/78
[2017-02-09 00:26] VITALS: BP 112/70
[2017-02-09] MEDS: SERTRALINE HCL 100 MG TABLET PO SCH (08:06)
[2017-02-09] MEDS: MULTIVITAMINS WITH MINERALS, THERAPEUTIC TABLET PO SCH (08:06)
[2017-02-09] MEDS: FLUTICASONE/VILANTEROL 200-25 MCG/INH INHALER [14] IH SCH (08:07)
[2017-02-09] MEDS: DICLOFENAC SODIUM 1% 100 GM GEL [2GM] TP SCH ×2 (08:07→16:38)
[2017-02-09 08:26] VITALS: BP 123/90
[2017-02-09] MEDS: IBUPROFEN 600 MG TABLET PO PRN ×2 (10:21→19:19)
[2017-02-09 10:24] VITALS: BP 115/67
[2017-02-09 16:15] VITALS: BP 123/80
[2017-02-09 19:19] VITALS: BP 116/82
[2017-02-10 06:34] VITALS: BP 121/79
[2017-02-10 08:05] VITALS: BP 122/82
[2017-02-10] MEDS: SERTRALINE HCL 100 MG TABLET PO SCH (08:33)
[2017-02-10] MEDS: MULTIVITAMINS WITH MINERALS, THERAPEUTIC TABLET PO SCH (08:33)
[2017-02-10] MEDS: FLUTICASONE/VILANTEROL 200-25 MCG/INH INHALER [14] IH SCH (08:34)
[2017-02-10] MEDS: DICLOFENAC SODIUM 1% 100 GM GEL [2GM] TP SCH ×2 (08:34→18:09)
[2017-02-10] MEDS: LORazepam 2 MG TABLET PO PRN (13:16)
[2017-02-10 19:00] VITALS: BP 133/60
[2017-02-11 05:45] VITALS: BP 104/81
[2017-02-11] MEDS: SERTRALINE HCL 100 MG TABLET PO SCH (08:02)
[2017-02-11] MEDS: MULTIVITAMINS WITH MINERALS, THERAPEUTIC TABLET PO SCH (08:02)
[2017-02-11] MEDS: DICLOFENAC SODIUM 1% 100 GM GEL [2GM] TP SCH ×2 (08:02→16:34)
[2017-02-11] MEDS: FLUTICASONE/VILANTEROL 200-25 MCG/INH INHALER [14] IH SCH (08:02)
[2017-02-11 09:01] VITALS: BP 107/53
[2017-02-11 16:16] VITALS: BP 134/80
[2017-02-11] MEDS: ACETAMINOPHEN 325 MG TABLET PO PRN (20:47)
[2017-02-12 05:33] VITALS: BP 120/71
[2017-02-12] MEDS: SERTRALINE HCL 100 MG TABLET PO SCH (08:22)
[2017-02-12] MEDS: MULTIVITAMINS WITH MINERALS, THERAPEUTIC TABLET PO SCH (08:22)
[2017-02-12 08:29] VITALS: BP 125/74
[2017-02-12] MEDS: FLUTICASONE/VILANTEROL 200-25 MCG/INH INHALER [14] IH SCH (08:29)
[2017-02-12] MEDS: IBUPROFEN 600 MG TABLET PO PRN (08:29)
[2017-02-12] MEDS: DICLOFENAC SODIUM 1% 100 GM GEL [2GM] TP SCH ×2 (08:29→16:08)
[2017-02-12 16:17] VITALS: BP 121/79
[2017-02-13 03:55] VITALS: BP 110/79
[2017-02-13 08:08] VITALS: BP 117/60
[2017-02-13] MEDS: FLUTICASONE/VILANTEROL 200-25 MCG/INH INHALER [14] IH SCH (08:25)
[2017-02-13] MEDS: MULTIVITAMINS WITH MINERALS, THERAPEUTIC TABLET PO SCH (08:25)
[2017-02-13] MEDS: SERTRALINE HCL 100 MG TABLET PO SCH (08:25)
[2017-02-13] MEDS: DICLOFENAC SODIUM 1% 100 GM GEL [2GM] TP SCH ×2 (08:25→16:08)
[2017-02-13 16:05] VITALS: BP 118/69
[2017-02-14 03:32] VITALS: BP 124/74
[2017-02-14] MEDS: SERTRALINE HCL 100 MG TABLET PO SCH (08:07)
[2017-02-14] MEDS: FLUTICASONE/VILANTEROL 200-25 MCG/INH INHALER [14] IH SCH (08:07)
[2017-02-14] MEDS: MULTIVITAMINS WITH MINERALS, THERAPEUTIC TABLET PO SCH (08:07)
[2017-02-14] MEDS: DICLOFENAC SODIUM 1% 100 GM GEL [2GM] TP SCH ×2 (08:08→16:56)
[2017-02-14 08:30] VITALS: BP 124/80
[2017-02-14 08:38] LABS: BASOPHILS % (AUTO) 0.4 % (0.0-2.0); EOSINOPHILS % (AUTO) 1.8 % (1.0-6.0); HEMATOCRIT 35.6 % (36-46); HEMOGLOBIN 11.6 g/dL (12.0-16.0); LYMPHOCYTES % (AUTO) 40.4 % (22.0-44.0); MEAN CORPUSCULAR HEMOGLOBIN 28.1 pg (26.0-34.0); MEAN CORPUSCULAR HGB CONC 32.6 G/dL (31.0-37.0); MEAN CORPUSCULAR VOLUME 86 fL (80-100); NEUTROPHILS # (AUTO) 3.3 K/uL (1.8-7.7); NEUTROPHILS % (AUTO) 44.4 % (40.0-70.0); PLATELET COUNT (AUTO) 213 K/uL (150-450); RED BLOOD CELL COUNT(AUTO) 4.14 MIL/uL (4.00-5.20); RED CELL DISTRIBUTION WIDTH 15.4 % (11.5-14.5); WHITE BLOOD COUNT (AUTO) 7.4 K/uL (4.5-11.0)
[2017-02-14 10:08] LABS: ALANINE AMINOTRANSFERASE 19 U/L (12-78); ALBUMIN 3.1 g/dL (3.4-5.0); ANION GAP 8 mmol/L (8-16); ASPARTATE AMINOTRANSFERASE 18 U/L (15-37); BILIRUBIN,TOTAL 0.3 mg/dL (0.1-1.0); CALCIUM, TOTAL 7.9 mg/dL (8.8-10.5); CARBON DIOXIDE 27 mmol/L (22-29); CHLORIDE 107 mmol/L (98-107); CHOL/HDL RATIO 2.5 (3.9-5.7); GLOMERULAR FILTR. RATE CALC > 60 mL/min (>60); PHOSPHORUS 3.9 mg/dL (2.5-4.9); POTASSIUM 3.9 mmol/L (3.5-5.1); SODIUM SERUM 142 mmol/L (136-145); THYROID STIMULATING HORMONE 1.34 uIU/mL (0.36-3.74); TOTAL PROTEIN, SERUM 6.4 g/dL (6.4-8.2); UREA NITROGEN, BLOOD 16 mg/dL (7-18)
[2017-02-14 16:03] VITALS: BP 112/75
[2017-02-15 06:51] VITALS: BP 118/68
[2017-02-15 08:04] VITALS: BP 118/63
[2017-02-15] MEDS: MULTIVITAMINS WITH MINERALS, THERAPEUTIC TABLET PO SCH (08:36)
[2017-02-15] MEDS: DICLOFENAC SODIUM 1% 100 GM GEL [2GM] TP SCH ×2 (08:36→17:02)
[2017-02-15] MEDS: FLUTICASONE/VILANTEROL 200-25 MCG/INH INHALER [14] IH SCH (08:36)
[2017-02-15] MEDS: SERTRALINE HCL 100 MG TABLET PO SCH (08:36)
[2017-02-15] MEDS: PALIPERIDONE PALMITATE 234 MG/1.5 ML SYRINGE IM SCH (08:38)
[2017-02-15] MEDS: ALBUTEROL SULFATE HFA 90 MCG/PUFF 8 GM INHALER IH PRN (11:26)
[2017-02-15] MEDS: LORazepam 2 MG TABLET PO PRN (11:26)
[2017-02-15 16:09] VITALS: BP 112/70
[2017-02-16 02:51] VITALS: BP 127/77
[2017-02-16] MEDS: FERROUS SULFATE 325 MG EC TABLET PO SCH ×2 (07:11→16:57)
[2017-02-16 07:49] LABS: BASOPHILS # (AUTO) 0.03 K/uL (0.00-0.20); BASOPHILS % (AUTO) 0.4 % (0.0-2.0); EOSINOPHILS # (AUTO) 0.12 K/uL (0.00-0.70); HEMATOCRIT 33.9 % (36-46); HEMOGLOBIN 11.4 g/dL (12.0-16.0); LYMPHOCYTES % (AUTO) 36.6 % (22.0-44.0); MEAN CORPUSCULAR HEMOGLOBIN 28.5 pg (26.0-34.0); MEAN CORPUSCULAR HGB CONC 33.7 G/dL (31.0-37.0); MEAN CORPUSCULAR VOLUME 84 fL (80-100); MONOCYTES # (AUTO) 1.1 K/uL (0.1-1.0); MONOCYTES % (AUTO) 12.8 % (2.0-9.0); NEUTROPHILS % (AUTO) 48.9 % (40.0-70.0); PLATELET COUNT (AUTO) 206 K/uL (150-450); RED BLOOD CELL COUNT(AUTO) 4.02 MIL/uL (4.00-5.20); RED CELL DISTRIBUTION WIDTH 15.2 % (11.5-14.5); WHITE BLOOD COUNT (AUTO) 8.3 K/uL (4.5-11.0)
[2017-02-16 08:00] VITALS: BP 118/75
[2017-02-16 08:56] LABS: ANION GAP 8 mmol/L (8-16); CALCIUM, TOTAL 8.3 mg/dL (8.8-10.5); CARBON DIOXIDE 27 mmol/L (22-29); CHLORIDE 106 mmol/L (98-107); CREATININE 0.65 mg/dL (0.60-1.30); GLOMERULAR FILTR. RATE CALC > 60 mL/min (>60); PHOSPHORUS 4.5 mg/dL (2.5-4.9); SODIUM SERUM 141 mmol/L (136-145); UREA NITROGEN, BLOOD 14 mg/dL (7-18)
[2017-02-16] MEDS: CHOLECALCIFEROL (VIT D3) 1,000 UNITS TABLET PO SCH (10:11)
[2017-02-16] MEDS: MAGNESIUM OXIDE 400 MG TABLET PO SCH ×2 (10:11→16:57)
[2017-02-16] MEDS: MULTIVITAMINS WITH MINERALS, THERAPEUTIC TABLET PO SCH (10:11)
[2017-02-16] MEDS: SERTRALINE HCL 100 MG TABLET PO SCH (10:11)
[2017-02-16] MEDS: FLUTICASONE/VILANTEROL 200-25 MCG/INH INHALER [14] IH SCH (10:12)
[2017-02-16] MEDS: DICLOFENAC SODIUM 1% 100 GM GEL [2GM] TP SCH ×2 (10:12→16:57)
[2017-02-16 16:04] VITALS: BP 124/69
[2017-02-17 05:56] VITALS: BP 120/74
[2017-02-17 06:14] VITALS: BP 120/74
[2017-02-17] MEDS: FERROUS SULFATE 325 MG EC TABLET PO SCH ×2 (06:42→16:38)
[2017-02-17 08:03] VITALS: BP 124/74
[2017-02-17] MEDS: CHOLECALCIFEROL (VIT D3) 1,000 UNITS TABLET PO SCH (08:21)
[2017-02-17] MEDS: MULTIVITAMINS WITH MINERALS, THERAPEUTIC TABLET PO SCH (08:21)
[2017-02-17] MEDS: MAGNESIUM OXIDE 400 MG TABLET PO SCH ×2 (08:21→16:38)
[2017-02-17] MEDS: FLUTICASONE/VILANTEROL 200-25 MCG/INH INHALER [14] IH SCH (08:21)
[2017-02-17] MEDS: SERTRALINE HCL 100 MG TABLET PO SCH (08:21)
[2017-02-17] MEDS: DICLOFENAC SODIUM 1% 100 GM GEL [2GM] TP SCH ×2 (08:22→16:38)
[2017-02-17 16:07] VITALS: BP 123/83
[2017-02-17 19:53] VITALS: BP 124/84
[2017-02-17] MEDS: IBUPROFEN 600 MG TABLET PO PRN (19:53)
[2017-02-17] MEDS: ZOLPIDEM TARTRATE 10 MG TABLET PO PRN (20:53)
[2017-02-18 06:27] VITALS: BP 124/89
[2017-02-18] MEDS: FERROUS SULFATE 325 MG EC TABLET PO SCH ×2 (06:27→17:07)
[2017-02-18 08:03] VITALS: BP 125/75
[2017-02-18] MEDS: CHOLECALCIFEROL (VIT D3) 1,000 UNITS TABLET PO SCH (08:41)
[2017-02-18] MEDS: MAGNESIUM OXIDE 400 MG TABLET PO SCH ×2 (08:41→17:07)
[2017-02-18] MEDS: SERTRALINE HCL 100 MG TABLET PO SCH (08:41)
[2017-02-18] MEDS: FLUTICASONE/VILANTEROL 200-25 MCG/INH INHALER [14] IH SCH (08:41)
[2017-02-18] MEDS: MULTIVITAMINS WITH MINERALS, THERAPEUTIC TABLET PO SCH (08:41)
[2017-02-18] MEDS: DICLOFENAC SODIUM 1% 100 GM GEL [2GM] TP SCH ×2 (08:42→17:07)
[2017-02-18 16:10] VITALS: BP 123/78
[2017-02-18] MEDS: ONDANSETRON HCL 4 MG TABLET PO PRN (21:03)
[2017-02-19 05:44] VITALS: BP 104/60
[2017-02-19] MEDS: FERROUS SULFATE 325 MG EC TABLET PO SCH ×2 (06:15→17:19)
[2017-02-19 08:04] VITALS: BP 113/61
[2017-02-19] MEDS: SERTRALINE HCL 100 MG TABLET PO SCH (08:49)
[2017-02-19] MEDS: FLUTICASONE/VILANTEROL 200-25 MCG/INH INHALER [14] IH SCH (08:49)
[2017-02-19] MEDS: CHOLECALCIFEROL (VIT D3) 1,000 UNITS TABLET PO SCH (08:49)
[2017-02-19] MEDS: MULTIVITAMINS WITH MINERALS, THERAPEUTIC TABLET PO SCH (08:49)
[2017-02-19] MEDS: MAGNESIUM OXIDE 400 MG TABLET PO SCH ×2 (08:49→17:19)
[2017-02-19] MEDS: DICLOFENAC SODIUM 1% 100 GM GEL [2GM] TP SCH ×2 (08:50→17:19)
[2017-02-19 16:03] VITALS: BP 124/95
[2017-02-20] MEDS: FERROUS SULFATE 325 MG EC TABLET PO SCH ×2 (06:36→16:37)
[2017-02-20 06:41] VITALS: BP 111/67
[2017-02-20 08:00] VITALS: BP 123/80
[2017-02-20] MEDS: FLUTICASONE/VILANTEROL 200-25 MCG/INH INHALER [14] IH SCH (08:15)
[2017-02-20] MEDS: MAGNESIUM OXIDE 400 MG TABLET PO SCH ×2 (08:15→16:38)
[2017-02-20] MEDS: MULTIVITAMINS WITH MINERALS, THERAPEUTIC TABLET PO SCH (08:15)
[2017-02-20] MEDS: DICLOFENAC SODIUM 1% 100 GM GEL [2GM] TP SCH ×2 (08:16→16:38)
[2017-02-20] MEDS: SERTRALINE HCL 100 MG TABLET PO SCH (08:16)
[2017-02-20] MEDS: CHOLECALCIFEROL (VIT D3) 1,000 UNITS TABLET PO SCH (08:16)
[2017-02-20 16:05] VITALS: BP 120/73
[2017-02-21] VITALS: BP 123/81
[2017-02-21] MEDS: FERROUS SULFATE 325 MG EC TABLET PO SCH ×2 (06:09→17:12)
[2017-02-21 06:21] VITALS: BP 114/77
[2017-02-21] MEDS: MULTIVITAMINS WITH MINERALS, THERAPEUTIC TABLET PO SCH (08:15)
[2017-02-21] MEDS: MAGNESIUM OXIDE 400 MG TABLET PO SCH ×2 (08:16→17:12)
[2017-02-21] MEDS: FLUTICASONE/VILANTEROL 200-25 MCG/INH INHALER [14] IH SCH (08:16)
[2017-02-21] MEDS: SERTRALINE HCL 100 MG TABLET PO SCH (08:16)
[2017-02-21] MEDS: DICLOFENAC SODIUM 1% 100 GM GEL [2GM] TP SCH ×2 (08:16→17:11)
[2017-02-21] MEDS: CHOLECALCIFEROL (VIT D3) 1,000 UNITS TABLET PO SCH (08:16)
[2017-02-21 08:19] VITALS: BP 119/61
[2017-02-21 16:06] VITALS: BP 113/76
[2017-02-22] MEDS: FERROUS SULFATE 325 MG EC TABLET PO SCH ×2 (06:35→17:11)
[2017-02-22] MEDS: DICLOFENAC SODIUM 1% 100 GM GEL [2GM] TP SCH ×2 (08:03→17:20)
[2017-02-22] MEDS: FLUTICASONE/VILANTEROL 200-25 MCG/INH INHALER [14] IH SCH (08:03)
[2017-02-22 08:04] VITALS: BP 120/80
[2017-02-22] MEDS: SERTRALINE HCL 100 MG TABLET PO SCH (08:04)
[2017-02-22] MEDS: MAGNESIUM OXIDE 400 MG TABLET PO SCH ×2 (08:04→17:11)
[2017-02-22] MEDS: CHOLECALCIFEROL (VIT D3) 1,000 UNITS TABLET PO SCH (08:04)
[2017-02-22] MEDS: MULTIVITAMINS WITH MINERALS, THERAPEUTIC TABLET PO SCH (08:04)
[2017-02-22 16:03] VITALS: BP 118/76
[2017-02-23 06:05] VITALS: BP 104/64
[2017-02-23] MEDS: FERROUS SULFATE 325 MG EC TABLET PO SCH ×2 (06:49→17:11)
[2017-02-23 08:03] VITALS: BP 125/90
[2017-02-23] MEDS: FLUTICASONE/VILANTEROL 200-25 MCG/INH INHALER [14] IH SCH (09:01)
[2017-02-23] MEDS: MULTIVITAMINS WITH MINERALS, THERAPEUTIC TABLET PO SCH (09:01)
[2017-02-23] MEDS: SERTRALINE HCL 100 MG TABLET PO SCH (09:01)
[2017-02-23] MEDS: MAGNESIUM OXIDE 400 MG TABLET PO SCH ×2 (09:01→17:10)
[2017-02-23] MEDS: CHOLECALCIFEROL (VIT D3) 1,000 UNITS TABLET PO SCH (09:01)
[2017-02-23] MEDS: DICLOFENAC SODIUM 1% 100 GM GEL [2GM] TP SCH ×2 (09:02→17:11)
[2017-02-23 16:39] VITALS: BP 132/88
[2017-02-24 03:50] VITALS: BP 131/93
[2017-02-24] MEDS: FERROUS SULFATE 325 MG EC TABLET PO SCH ×2 (06:53→17:07)
[2017-02-24 08:04] VITALS: BP 126/70
[2017-02-24] MEDS: CHOLECALCIFEROL (VIT D3) 1,000 UNITS TABLET PO SCH (08:19)
[2017-02-24] MEDS: FLUTICASONE/VILANTEROL 200-25 MCG/INH INHALER [14] IH SCH (08:19)
[2017-02-24] MEDS: MULTIVITAMINS WITH MINERALS, THERAPEUTIC TABLET PO SCH (08:19)
[2017-02-24] MEDS: MAGNESIUM OXIDE 400 MG TABLET PO SCH ×2 (08:19→17:07)
[2017-02-24] MEDS: SERTRALINE HCL 100 MG TABLET PO SCH (08:19)
[2017-02-24] MEDS: DICLOFENAC SODIUM 1% 100 GM GEL [2GM] TP SCH ×2 (08:21→17:08)
[2017-02-24 16:20] VITALS: BP 121/84
[2017-02-25 04:18] VITALS: BP 111/80
[2017-02-25] MEDS: IBUPROFEN 600 MG TABLET PO PRN (04:22)
[2017-02-25] MEDS: FERROUS SULFATE 325 MG EC TABLET PO SCH ×2 (06:37→17:08)
[2017-02-25 08:04] VITALS: BP 105/57
[2017-02-25] MEDS: MULTIVITAMINS WITH MINERALS, THERAPEUTIC TABLET PO SCH (09:24)
[2017-02-25] MEDS: FLUTICASONE/VILANTEROL 200-25 MCG/INH INHALER [14] IH SCH (09:24)
[2017-02-25] MEDS: DICLOFENAC SODIUM 1% 100 GM GEL [2GM] TP SCH ×2 (09:24→17:08)
[2017-02-25] MEDS: MAGNESIUM OXIDE 400 MG TABLET PO SCH ×2 (09:24→17:08)
[2017-02-25] MEDS: CHOLECALCIFEROL (VIT D3) 1,000 UNITS TABLET PO SCH (09:24)
[2017-02-25] MEDS: SERTRALINE HCL 100 MG TABLET PO SCH (09:26)
[2017-02-25] MEDS: ALBUTEROL SULFATE HFA 90 MCG/PUFF 8 GM INHALER IH PRN (10:02)
[2017-02-25 16:11] VITALS: BP 126/81
[2017-02-26 00:04] VITALS: BP 106/63
[2017-02-26] MEDS: FERROUS SULFATE 325 MG EC TABLET PO SCH ×2 (06:50→18:09)
[2017-02-26] MEDS: SERTRALINE HCL 100 MG TABLET PO SCH (08:18)
[2017-02-26] MEDS: MULTIVITAMINS WITH MINERALS, THERAPEUTIC TABLET PO SCH (08:18)
[2017-02-26] MEDS: CHOLECALCIFEROL (VIT D3) 1,000 UNITS TABLET PO SCH (08:18)
[2017-02-26] MEDS: MAGNESIUM OXIDE 400 MG TABLET PO SCH ×2 (08:19→18:09)
[2017-02-26] MEDS: DICLOFENAC SODIUM 1% 100 GM GEL [2GM] TP SCH ×2 (08:19→17:00)
[2017-02-26] MEDS: FLUTICASONE/VILANTEROL 200-25 MCG/INH INHALER [14] IH SCH (08:19)
[2017-02-26 09:59] VITALS: BP 140/79
[2017-02-26] MEDS: LOPERAMIDE HCL 2 MG CAPSULE PO PRN (15:08)
[2017-02-26 16:04] VITALS: BP 118/76
[2017-02-27 02:36] VITALS: BP 129/77
[2017-02-27] MEDS: FERROUS SULFATE 325 MG EC TABLET PO SCH ×2 (06:46→17:16)
[2017-02-27 08:04] VITALS: BP 142/79
[2017-02-27] MEDS: MAGNESIUM OXIDE 400 MG TABLET PO SCH ×2 (08:58→17:16)
[2017-02-27] MEDS: MULTIVITAMINS WITH MINERALS, THERAPEUTIC TABLET PO SCH (08:58)
[2017-02-27] MEDS: FLUTICASONE/VILANTEROL 200-25 MCG/INH INHALER [14] IH SCH (08:58)
[2017-02-27] MEDS: CHOLECALCIFEROL (VIT D3) 1,000 UNITS TABLET PO SCH (08:58)
[2017-02-27] MEDS: SERTRALINE HCL 100 MG TABLET PO SCH (08:58)
[2017-02-27] MEDS: DICLOFENAC SODIUM 1% 100 GM GEL [2GM] TP SCH ×2 (08:59→17:16)
[2017-02-27 16:12] VITALS: BP 121/85
[2017-02-28 00:53] VITALS: BP 138/68
[2017-02-28] MEDS: ZOLPIDEM TARTRATE 10 MG TABLET PO PRN (01:51)
[2017-02-28] MEDS: FERROUS SULFATE 325 MG EC TABLET PO SCH ×2 (06:42→16:55)
[2017-02-28 08:04] VITALS: BP 112/75
[2017-02-28] MEDS: CHOLECALCIFEROL (VIT D3) 1,000 UNITS TABLET PO SCH (08:48)
[2017-02-28] MEDS: MULTIVITAMINS WITH MINERALS, THERAPEUTIC TABLET PO SCH (08:48)
[2017-02-28] MEDS: MAGNESIUM OXIDE 400 MG TABLET PO SCH ×2 (08:48→16:55)
[2017-02-28] MEDS: SERTRALINE HCL 100 MG TABLET PO SCH (08:48)
[2017-02-28] MEDS: DICLOFENAC SODIUM 1% 100 GM GEL [2GM] TP SCH ×2 (08:48→16:55)
[2017-02-28] MEDS: FLUTICASONE/VILANTEROL 200-25 MCG/INH INHALER [14] IH SCH (08:48)
[2017-02-28 09:50] LABS: APPEARANCE,URINE CLEAR (CLEAR); GLUCOSE, URINE (UA) NEGATIVE (NEGATIVE); KETONES,URINE NEGATIVE (NEGATIVE); LEUKOCYTE ESTERASE ,URINE NEGATIVE (NEGATIVE); OCCULT BLOOD,URINE NEGATIVE (NEGATIVE); PH,URINE 6.5 (5.0-8.0); PROTEIN,URINE NEGATIVE (NEGATIVE)
[2017-02-28 09:51] LABS: ADD UA MICROSCOPIC NO
[2017-02-28 16:05] VITALS: BP 117/68
[2017-02-28 19:44] VITALS: BP 135/73
[2017-02-28] MEDS: ALBUTEROL SULFATE HFA 90 MCG/PUFF 8 GM INHALER IH PRN (19:45)
[2017-02-28] MEDS: LORazepam 2 MG TABLET PO PRN (19:47)
[2017-03-01 00:20] VITALS: BP 109/63
[2017-03-01] MEDS: FERROUS SULFATE 325 MG EC TABLET PO SCH ×2 (06:50→17:01)
[2017-03-01 08:03] VITALS: BP 118/84
[2017-03-01] MEDS: MULTIVITAMINS WITH MINERALS, THERAPEUTIC TABLET PO SCH (08:25)
[2017-03-01] MEDS: MAGNESIUM OXIDE 400 MG TABLET PO SCH ×2 (08:25→17:01)
[2017-03-01] MEDS: CHOLECALCIFEROL (VIT D3) 1,000 UNITS TABLET PO SCH (08:25)
[2017-03-01] MEDS: SERTRALINE HCL 100 MG TABLET PO SCH (08:25)
[2017-03-01] MEDS: DICLOFENAC SODIUM 1% 100 GM GEL [2GM] TP SCH ×2 (08:25→17:02)
[2017-03-01] MEDS: FLUTICASONE/VILANTEROL 200-25 MCG/INH INHALER [14] IH SCH (08:25)
[2017-03-01 16:03] VITALS: BP 130/83
[2017-03-02 01:31] VITALS: BP 107/68
[2017-03-02] MEDS: FERROUS SULFATE 325 MG EC TABLET PO SCH ×2 (07:17→17:27)
[2017-03-02 08:04] VITALS: BP 123/73
[2017-03-02] MEDS: FLUTICASONE/VILANTEROL 200-25 MCG/INH INHALER [14] IH SCH (09:02)
[2017-03-02] MEDS: CHOLECALCIFEROL (VIT D3) 1,000 UNITS TABLET PO SCH (09:02)
[2017-03-02] MEDS: MAGNESIUM OXIDE 400 MG TABLET PO SCH ×2 (09:02→17:27)
[2017-03-02] MEDS: MULTIVITAMINS WITH MINERALS, THERAPEUTIC TABLET PO SCH (09:02)
[2017-03-02] MEDS: DICLOFENAC SODIUM 1% 100 GM GEL [2GM] TP SCH ×2 (09:02→17:27)
[2017-03-02] MEDS: SERTRALINE HCL 100 MG TABLET PO SCH (09:02)
[2017-03-02] MEDS: LORazepam 2 MG TABLET PO PRN (10:10)
[2017-03-02 16:13] VITALS: BP 138/85
[2017-03-03 01:24] VITALS: BP 118/73
[2017-03-03] MEDS: FERROUS SULFATE 325 MG EC TABLET PO SCH ×2 (07:26→17:17)
[2017-03-03 08:03] VITALS: BP 117/74
[2017-03-03] MEDS: CHOLECALCIFEROL (VIT D3) 1,000 UNITS TABLET PO SCH (08:56)
[2017-03-03] MEDS: MAGNESIUM OXIDE 400 MG TABLET PO SCH ×2 (08:56→17:17)
[2017-03-03] MEDS: FLUTICASONE/VILANTEROL 200-25 MCG/INH INHALER [14] IH SCH (08:56)
[2017-03-03] MEDS: SERTRALINE HCL 100 MG TABLET PO SCH (08:56)
[2017-03-03] MEDS: MULTIVITAMINS WITH MINERALS, THERAPEUTIC TABLET PO SCH (08:56)
[2017-03-03] MEDS: DICLOFENAC SODIUM 1% 100 GM GEL [2GM] TP SCH ×2 (08:57→17:17)
[2017-03-03 16:11] VITALS: BP 120/73
[2017-03-03] MEDS: LORazepam 2 MG TABLET PO PRN (18:38)
[2017-03-04 02:02] VITALS: BP 116/75
[2017-03-04] MEDS: FERROUS SULFATE 325 MG EC TABLET PO SCH ×2 (06:03→17:05)
[2017-03-04 08:11] VITALS: BP 124/72
[2017-03-04] MEDS: SERTRALINE HCL 100 MG TABLET PO SCH (09:40)
[2017-03-04] MEDS: MULTIVITAMINS WITH MINERALS, THERAPEUTIC TABLET PO SCH (09:40)
[2017-03-04] MEDS: DICLOFENAC SODIUM 1% 100 GM GEL [2GM] TP SCH ×2 (09:40→17:05)
[2017-03-04] MEDS: FLUTICASONE/VILANTEROL 200-25 MCG/INH INHALER [14] IH SCH (09:40)
[2017-03-04] MEDS: CHOLECALCIFEROL (VIT D3) 1,000 UNITS TABLET PO SCH (09:40)
[2017-03-04] MEDS: MAGNESIUM OXIDE 400 MG TABLET PO SCH ×2 (09:40→17:05)
[2017-03-04 16:08] VITALS: BP 126/86
[2017-03-05 01:20] VITALS: BP 110/66
[2017-03-05] MEDS: ZOLPIDEM TARTRATE 10 MG TABLET PO PRN (01:22)
[2017-03-05] MEDS: FERROUS SULFATE 325 MG EC TABLET PO SCH ×2 (06:27→17:02)
[2017-03-05 08:55] VITALS: BP 105/68
[2017-03-05] MEDS: FLUTICASONE/VILANTEROL 200-25 MCG/INH INHALER [14] IH SCH (09:47)
[2017-03-05] MEDS: CHOLECALCIFEROL (VIT D3) 1,000 UNITS TABLET PO SCH (09:47)
[2017-03-05] MEDS: SERTRALINE HCL 100 MG TABLET PO SCH (09:47)
[2017-03-05] MEDS: MAGNESIUM OXIDE 400 MG TABLET PO SCH ×2 (09:47→17:02)
[2017-03-05] MEDS: DICLOFENAC SODIUM 1% 100 GM GEL [2GM] TP SCH ×2 (09:47→17:02)
[2017-03-05] MEDS: MULTIVITAMINS WITH MINERALS, THERAPEUTIC TABLET PO SCH (09:47)
[2017-03-05 16:04] VITALS: BP 145/83
[2017-03-05 21:25] VITALS: BP 134/80
[2017-03-06 02:29] VITALS: BP 107/65
[2017-03-06] MEDS: FERROUS SULFATE 325 MG EC TABLET PO SCH ×2 (07:11→17:01)
[2017-03-06 08:04] VITALS: BP 126/84
[2017-03-06] MEDS: SERTRALINE HCL 100 MG TABLET PO SCH (08:37)
[2017-03-06] MEDS: MAGNESIUM OXIDE 400 MG TABLET PO SCH ×2 (08:37→17:01)
[2017-03-06] MEDS: CHOLECALCIFEROL (VIT D3) 1,000 UNITS TABLET PO SCH (08:37)
[2017-03-06] MEDS: MULTIVITAMINS WITH MINERALS, THERAPEUTIC TABLET PO SCH (08:37)
[2017-03-06] MEDS: FLUTICASONE/VILANTEROL 200-25 MCG/INH INHALER [14] IH SCH (08:37)
[2017-03-06] MEDS: DICLOFENAC SODIUM 1% 100 GM GEL [2GM] TP SCH ×2 (08:37→17:02)
[2017-03-06 16:05] VITALS: BP 122/85
[2017-03-06] MEDS ORDERED: BENZOCAINE 10% 7 GM GEL TP PRN (19:30)
[2017-03-06] MEDS: ZOLPIDEM TARTRATE 10 MG TABLET PO PRN (20:51)
[2017-03-07 04:07] VITALS: BP 125/77
[2017-03-07] MEDS: FERROUS SULFATE 325 MG EC TABLET PO SCH ×2 (06:07→16:47)
[2017-03-07 08:04] VITALS: BP 132/85
[2017-03-07] MEDS: MAGNESIUM SULFATE 454 GM BOX TP SCH (09:33)
[2017-03-07] MEDS: MAGNESIUM OXIDE 400 MG TABLET PO SCH ×2 (09:33→16:47)
[2017-03-07] MEDS: DICLOFENAC SODIUM 1% 100 GM GEL [2GM] TP SCH ×2 (09:33→16:48)
[2017-03-07] MEDS: SERTRALINE HCL 100 MG TABLET PO SCH (09:33)
[2017-03-07] MEDS: FLUTICASONE/VILANTEROL 200-25 MCG/INH INHALER [14] IH SCH (09:33)
[2017-03-07] MEDS: CHOLECALCIFEROL (VIT D3) 1,000 UNITS TABLET PO SCH (09:33)
[2017-03-07] MEDS: MULTIVITAMINS WITH MINERALS, THERAPEUTIC TABLET PO SCH (09:33)
[2017-03-07 16:04] VITALS: BP 108/61
[2017-03-08 04:37] VITALS: BP 110/69
[2017-03-08] MEDS: FERROUS SULFATE 325 MG EC TABLET PO SCH ×2 (06:14→17:11)
[2017-03-08 08:16] VITALS: BP 104/58
[2017-03-08] MEDS: MAGNESIUM SULFATE 454 GM BOX TP SCH (08:54)
[2017-03-08] MEDS: DICLOFENAC SODIUM 1% 100 GM GEL [2GM] TP SCH ×2 (08:54→17:11)
[2017-03-08] MEDS: FLUTICASONE/VILANTEROL 200-25 MCG/INH INHALER [14] IH SCH (08:54)
[2017-03-08] MEDS: MULTIVITAMINS WITH MINERALS, THERAPEUTIC TABLET PO SCH (08:55)
[2017-03-08] MEDS: MAGNESIUM OXIDE 400 MG TABLET PO SCH ×2 (08:55→17:11)
[2017-03-08] MEDS: SERTRALINE HCL 100 MG TABLET PO SCH (08:55)
[2017-03-08] MEDS: CHOLECALCIFEROL (VIT D3) 1,000 UNITS TABLET PO SCH (08:55)
[2017-03-08] MEDS: LORazepam 2 MG TABLET PO PRN (11:00)
[2017-03-08 16:00] VITALS: BP 112/62
[2017-03-08 18:07] VITALS: BP 128/85
[2017-03-08] MEDS: IBUPROFEN 600 MG TABLET PO PRN (18:33)
[2017-03-08] MEDS: ZOLPIDEM TARTRATE 10 MG TABLET PO PRN (21:02)
[2017-03-09 00:01] VITALS: BP 106/61
[2017-03-09] MEDS: FERROUS SULFATE 325 MG EC TABLET PO SCH ×2 (06:51→17:07)
[2017-03-09 07:55] VITALS: BP 125/83
[2017-03-09 08:05] VITALS: BP 125/83
[2017-03-09] MEDS: MAGNESIUM OXIDE 400 MG TABLET PO SCH ×2 (08:32→17:07)
[2017-03-09] MEDS: CHOLECALCIFEROL (VIT D3) 1,000 UNITS TABLET PO SCH (08:32)
[2017-03-09] MEDS: SERTRALINE HCL 100 MG TABLET PO SCH (08:32)
[2017-03-09] MEDS: FLUTICASONE/VILANTEROL 200-25 MCG/INH INHALER [14] IH SCH (08:32)
[2017-03-09] MEDS: MAGNESIUM SULFATE 454 GM BOX TP SCH (08:32)
[2017-03-09] MEDS: MULTIVITAMINS WITH MINERALS, THERAPEUTIC TABLET PO SCH (08:32)
[2017-03-09] MEDS: DICLOFENAC SODIUM 1% 100 GM GEL [2GM] TP SCH ×2 (08:33→17:07)
[2017-03-09 16:07] VITALS: BP 122/76
[2017-03-10 00:57] VITALS: BP 108/88
[2017-03-10] MEDS: FERROUS SULFATE 325 MG EC TABLET PO SCH (06:37)
[2017-03-10 08:02] VITALS: BP 122/72
[2017-03-10] MEDS: CHOLECALCIFEROL (VIT D3) 1,000 UNITS TABLET PO SCH (09:07)
[2017-03-10] MEDS: SERTRALINE HCL 100 MG TABLET PO SCH (09:07)
[2017-03-10] MEDS: MAGNESIUM OXIDE 400 MG TABLET PO SCH (09:07)
[2017-03-10] MEDS: MULTIVITAMINS WITH MINERALS, THERAPEUTIC TABLET PO SCH (09:07)
[2017-03-10] MEDS: FLUTICASONE/VILANTEROL 200-25 MCG/INH INHALER [14] IH SCH (09:08)
[2017-03-10] MEDS: DICLOFENAC SODIUM 1% 100 GM GEL [2GM] TP SCH (09:08)
[2017-03-10] MEDS: MAGNESIUM SULFATE 454 GM BOX TP SCH (09:09)
[2017-03-10] MEDS ORDERED: TUBERCULIN, PURIFIED PROTEIN DERIVATIVE 5 TU/0.1 ML SYG ID ONE (10:30)
[2017-03-10] MEDS ORDERED: FERR-89 PO (10:42)
[2017-03-10] MEDS ORDERED: MAGOX PO (10:42)
== END 2017-03-10 14:25 | DRG 885 ==
LOC: EDSTATUS 16:30 → B2X 09-24 13:41
DX: F25.1 Schizoaffective disorder, depressive type (principal); R45.851 Suicidal ideations; J45.909 Unspecified asthma, uncomplicated; Z88.8 Allergy status to other drugs, medicaments and biological substances; E66.9 Obesity, unspecified; G47.00 Insomnia, unspecified; F41.9 Anxiety disorder, unspecified; F60.3 Borderline personality disorder; R51 Headache; F20.0 Paranoid schizophrenia; L60.0 Ingrowing nail; D50.9 Iron deficiency anemia, unspecified; E58 Dietary calcium deficiency; E55.9 Vitamin D deficiency, unspecified; H92.02 Otalgia, left ear; Z91.5 Personal history of self-harm; Z91.14 Patient's other noncompliance with medication regimen; Z79.899 Other long term (current) drug therapy; Z68.34 Body mass index [BMI] 34.0-34.9, adult
CPT/HCPCS: 82306; 83735; 84100; 84443; 87081; 93005; A0429; G0479; G0480; J1200; J1630; J2060; J3490; J3535; Q0162